=== PATIENT | female | born 1985 | race Two or more races ===

== ENCOUNTER 2020-01-04 20:32 | Emergency (ER) | payer OTHER, MEDICAID ==
[2020-01-04 21:30] LABS: ABSOLUTE BASOPHILS # (AUTO) 0.1 10^3/uL (0.0-0.2); ABSOLUTE EOSINOPHILS # (AUTO) 0.1 10^3/uL (0.0-0.6); ABSOLUTE LYMPHOCYTES (AUTO) 2.4 10^3/uL (0.5-4.7); ABSOLUTE MONOCYTES (AUTO) 0.5 10^3/uL (0.1-1.4); ABSOLUTE NEUT (AUTO) 4.9 10^3/uL (1.7-8.2); BASOPHILS % (AUTO) 0.7 % (0-2); EOSINOPHILS % (AUTO) 0.7 % (0-6); HEMATOCRIT 38.9 % (36.0-47.0); HEMOGLOBIN 13.2 g/dL (12.0-15.5); LYMPHOCYTES % (AUTO) 30.4 % (13-45); MEAN CORPUSCULAR HEMOGLOBIN 28.8 pg (27.0-33.4); MEAN CORPUSCULAR HGB CONC 33.9 g/dL (32.0-36.0); MEAN CORPUSCULAR VOLUME 85 fl (80-97); MONOCYTES % (AUTO) 6.1 % (3-13); PLATELET COUNT 357 10^3/uL (150-450); RED BLOOD COUNT 4.58 10^6/uL (3.72-5.28); RED CELL DISTRIBUTION WIDTH 13.5 % (11.5-14.0); SEGMENTED NEUTROPHILS % (AUTO) 62.1 % (42-78); TOTAL CELLS COUNTED % (AUTO) 100 %; WHITE BLOOD COUNT 7.9 10^3/uL (4.0-10.5)
[2020-01-04 21:35] LABS: APPEARANCE,URINE CLEAR; BILIRUBIN,URINE NEGATIVE (NEGATIVE); COLOR,URINE YELLOW; GLUCOSE, URINE 50 mg/dL (NEGATIVE); KETONES,URINE NEGATIVE (NEGATIVE); LEUKOCYTE ESTERASE,URINE NEGATIVE (NEGATIVE); NITRITE,URINE NEGATIVE (NEGATIVE); PROTEIN,URINE NEGATIVE (NEGATIVE); UROBILINOGEN,URINE NEGATIVE mg/dL (<2.0)
[2020-01-04 21:44] LABS: ALBUMIN 4.1 g/dL (3.5-5.0); ALKALINE PHOSPHATASE 68 U/L (38-126); ANION GAP 9 (5-19); ASPARTATE AMINO TRANSFERASE 18 U/L (14-36); BILIRUBIN,DIRECT 0.2 mg/dL (0.0-0.4); BILIRUBIN,TOTAL 0.3 mg/dL (0.2-1.3); BLOOD UREA NITROGEN 13 mg/dL (7-20); CALCIUM 10.3 mg/dL (8.4-10.2); CARBON DIOXIDE 24 mmol/L (22-30); CHLORIDE 105 mmol/L (98-107); GLUCOSE 159 mg/dL (75-110); POTASSIUM 4.4 mmol/L (3.6-5.0); TOTAL PROTEIN 7.4 g/dL (6.3-8.2)
--- NOTE | 2020-01-04 21:52 | ER Document Report ---
ED GI/ - General Chief Complaint: OB Problem (<20wks) Stated Complaint: VAGINAL BLEEDING Time Seen by Provider: 01/04/20 21:01 Mode of Arrival: Ambulatory Information source: Patient Notes: 34-year-old woman presents emergency department with vaginal bleeding. She is a 4, para 3 Ab0 approximate 9-week intrauterine seen by her TIME CLOCK MECHANIC and ultrasound 2 weeks ago, intrauterine too early to identify heartbeat at that time. She states she was at work tonight when she began to note vaginal bleeding, similar to premenstrual bleeding according to the patient dark and no associated cramping or pain. She also admits to some dizziness. States that she does not know her blood type. - Related Data Allergies/Adverse Reactions: No Known Allergies Allergy (Unverified 01/04/20 20:48) Home Medications: vitamins. novalog R sliding scale. tresiba inj qpm Past Medical History - Social History Smoking Status: Never Smoker Family History: Reviewed & Not Pertinent Patient has suicidal ideation: No Patient has homicidal ideation: No Review of Systems - Review of Systems Notes: Constitutional: Negative for fever. HENT: Negative for sore throat. Eyes: Negative for visual changes. Cardiovascular: Negative for chest pain. Respiratory: Negative for shortness of breath. Gastrointestinal: Negative for abdominal pain, vomiting or diarrhea. Genitourinary: + Vaginal bleeding Musculoskeletal: Negative for back pain. Skin: Negative for rash. Neurological: Negative for headaches, weakness or numbness. 10 point ROS negative except as marked above and in HPI. Physical Exam - Vital signs Vitals: Temp Pulse Resp BP Pulse Ox 98.4 F 86 16 131/74 H 97 01/04/20 20:36 01/04/20 20:36 01/04/20 20:36 01/04/20 20:36 01/04/20 20:36 - Notes Notes: PHYSICAL EXAMINATION: Physical Exam: General: Well-nourished well-developed 34-year-old woman in no acute distress HEENT: NC/AT, pupils equal round and reactive to light, MM moist,nares clear, oropharynx clear, airway patent Neck: supple, no adenopathy, no masses. Good range of motion Lungs: clear, no wheezing, no rales no rhonchi CVS: Regular rate and rhythm no murmur gallop or rub Abdomen: Soft, active, nontender, no masses, no hepatosplenomegaly Ext: No edema, clubbing or cyanosis. Neuro: Alert and responsive, moving all 4 extremities on command, cranial nerves intact, no focal findings Skin: Intact no open lesions, no rash PSYCH: Normal mood, normal affect. Course - Re-evaluation Re-evalutation: 01/04/20 23:54 Patient is stable, no pain, ultrasound revealed saclike structure within the uterus, 4.4 x 2.1 cm questionable gestational sac, no discrete yolk sac or pole to be identified. The quantitative hCG was 2575.60 and urinalysis negative. I discussed with the patient the need for follow-up, she notes she has an appointment with her [employer] CLOCK MECHANIC tomorrow. I have asked her to keep that appointment and to let them know that she has been seen in the emergency department tonight. She is in agreement with that plan and is being discharged. - Vital Signs Vital signs: Temp Pulse Resp BP Pulse Ox 98.5 F 90 20 124/81 99 01/05/20 00:27 01/05/20 00:27 01/05/20 00:27 01/05/20 00:27 01/05/20 00:27 - Laboratory Result Diagrams: 01/04/20 21:00 01/04/20 21:00 Laboratory results interpreted by me: 01/04/20 01/04/20 21:00 21:00 Glucose 159 H Calcium 10.3 H Beta HCG, Quant 2575.60 H Urine Glucose (UA) 50 H Urine Blood LARGE H Discharge - Discharge Clinical Impression: First-trimester bleeding Condition: Good Disposition: HOME, SELF-CARE Additional Instructions: You were diagnosed with first trimester vaginal bleeding tonight in the emergency department. The ultrasound reveals a saclike structure within the uterus. Quantitative hCG was 2,575. Please follow-up with the appointment that you have tomorrow with [employer] CL[employer] MECHANIC. If you began having heavier bleeding or cramping pain you may return to the emergency department for recheck if needed.
--- NOTE | 2020-01-04 23:11 | RADIOLOGY REPORT (SQ) ---
EXAM DESCRIPTION: US TRANSVAGINAL COMPLETED DATE/TME: 01/04/2020 10:38 PM CLINICAL HISTORY: with bleeding, approximately 9 weeks COMPARISON: None. FINDINGS: Transvaginal images of the pelvis were submitted. The uterus measured 11.8 x 2.6 x 5.9 cm. There is a cystic structure within the uterus measuring approximately 4.4 x 2.1 cm which could represent a gestational sac. There is no discrete yolk sac or pole visualized. Examination was limited due to patient's body habitus and superimposed bowel gas. There is a subcentimeter nabothian cyst. Ovaries were not visualized. There is no adnexal mass. IMPRESSION: Saclike structure within the uterus without discrete pole or yolk sac. This could represent a blighted ovum/spontaneous in progress. Other etiologies are not excluded. Correlation with serial beta-hCG levels recommended and follow-up ultrasound as indicated.
[2020-01-05 00:28] VITALS: BP 124/81
== END 2020-01-05 00:30 | disposition home or self-care (01) ==
LOC: ER 20:32
DX: O26.891 Other specified pregnancy related conditions, first trimester (principal); O20.9 Hemorrhage in early pregnancy, unspecified; R42 Dizziness and giddiness; Z79.4 Long term (current) use of insulin; Z79.899 Other long term (current) drug therapy; Z3A.00 Weeks of gestation of pregnancy not specified
CPT/HCPCS: 36415; 76817; 80053; 81001; 83690; 84702; 85025; 86900; 86901; 99284

== ENCOUNTER 2020-02-01 09:34 | Day surgery (SDC) | payer OTHER, MEDICAID ==
[2020-02-01 10:09] LABS: ABSOLUTE BASOPHILS # (AUTO) 0.1 10^3/uL (0.0-0.2); ABSOLUTE EOSINOPHILS # (AUTO) 0.1 10^3/uL (0.0-0.6); ABSOLUTE LYMPHOCYTES (AUTO) 2.8 10^3/uL (0.5-4.7); ABSOLUTE MONOCYTES (AUTO) 0.5 10^3/uL (0.1-1.4); ABSOLUTE NEUT (AUTO) 5.1 10^3/uL (1.7-8.2); BASOPHILS % (AUTO) 0.7 % (0-2); HEMATOCRIT 38.3 % (36.0-47.0); HEMOGLOBIN 13.1 g/dL (12.0-15.5); LYMPHOCYTES % (AUTO) 32.4 % (13-45); MEAN CORPUSCULAR HEMOGLOBIN 28.8 pg (27.0-33.4); MEAN CORPUSCULAR HGB CONC 34.1 g/dL (32.0-36.0); MEAN CORPUSCULAR VOLUME 84 fl (80-97); MONOCYTES % (AUTO) 5.7 % (3-13); PLATELET COUNT 283 10^3/uL (150-450); RED BLOOD COUNT 4.55 10^6/uL (3.72-5.28); RED CELL DISTRIBUTION WIDTH 13.2 % (11.5-14.0); SEGMENTED NEUTROPHILS % (AUTO) 60.2 % (42-78); TOTAL CELLS COUNTED % (AUTO) 100 %; WHITE BLOOD COUNT 8.6 10^3/uL (4.0-10.5)
[2020-02-01 10:26] LABS: APPEARANCE,URINE SLIGHTLY-CLOUDY; BILIRUBIN,URINE NEGATIVE (NEGATIVE); COLOR,URINE YELLOW; GLUCOSE, URINE >=500 mg/dL (NEGATIVE); KETONES,URINE TRACE mg/dL (NEGATIVE); LEUKOCYTE ESTERASE,URINE NEGATIVE (NEGATIVE); NITRITE,URINE NEGATIVE (NEGATIVE); PROTEIN,URINE 30 mg/dL (NEGATIVE); URINE SPECIFIC GRAVITY 1.023; UROBILINOGEN,URINE NEGATIVE mg/dL (<2.0)
[2020-02-01] MEDS ORDERED: MIDAZOLAM 2 MG/2 ML INJ ONE (13:17)
[2020-02-01] MEDS ORDERED: FENTANYL CITRATE INJ/PF 100 MCG/2 ML AMPUL ONE (13:17)
[2020-02-01] MEDS ORDERED: PROPOFOL INJ 200 MG/20 ML VIAL IV ONE (13:17)
[2020-02-01] MEDS ORDERED: LIDOCAINE 1% INJ-PF (10 MG/ML) 30 ML SDV ONE (13:18)
[2020-02-01] MEDS ORDERED: LIDOCAINE 1%/EPINEPHRINE INJ 20 ML VIAL ONE (13:19)
[2020-02-01] MEDS ORDERED: FENTANYL CITRATE INJ/PF 100 MCG/2 ML AMPUL IV PRN ×3 (13:37)
[2020-02-01] MEDS ORDERED: DIPHENHYDRAMINE HCL 50 MG/ML VIAL IV PRN (13:37)
[2020-02-01] MEDS ORDERED: MORPHINE SULFATE 10 MG/ML INJ IV PRN (13:37)
[2020-02-01] MEDS ORDERED: MEPERIDINE HCL/PF INJ 25 MG/1 ML DISP.SYRIN IV PRN (13:37)
[2020-02-01] MEDS ORDERED: PROMETHAZINE HCL INJ 25 MG/1 ML VIAL IV PRN ×2 (13:37)
--- NOTE | 2020-02-01 13:59 | Discharge Summary ---
Discharge Summary (SDC) - Discharge Final Diagnosis: Missed Date of Surgery: 02/01/20 Discharge Date: 02/01/20 Condition: Stable Treatment or Instructions: NO intercourse or anything in the vagina for 6 weeks Hydrate Prescriptions: Doxycycline Hyclate 100 mg PO BID 5 Days #10 tablet. Ibuprofen [Ibu] 800 mg PO Q8 10 Days #30 tablet Referrals: BRITTANEY ZAFAR PA-C [Primary Care Provider] - Respiratory Treatments at Home: Deep Breathing/Coughing Discharge Activity: Activity As Tolerated Home Care Assistance: None Needed Report the Following to Your Physician Immediately: Shortness of Breath, Nausea, Vomiting, Fever over 101 Degrees, Unusual Bleeding, Drainage-Foul Smelling, Large Clots
--- NOTE | 2020-02-01 14:03 | Operative Report ---
Operative Report DATE OF SURGERY: 02/01/20 PREOPERATIVE DIAGNOSIS: Missed in first trimester. Type II diabetes. Obesity POSTOPERATIVE DIAGNOSIS: same as above OPERATION: Suction Dilation and currettage SURGEON: EMIGDIO RIVERA ANESTHESIA: LMAC TISSUE REMOVED OR ALTERED: Prodiucts of conception COMPLICATIONS: None ESTIMATED BLOOD LOSS: 100cc INTRAOPERATIVE FINDINGS: Uterus sounded to 10 cm. Some dark blood at os which appeared dilated to less than 1 cm . Dilated to 1 cm easily and products of conception suctioned from endometrial cavity. Currettage done and suction repeated until gritty texture of endometrium noted. PROCEDURE: IV fluids: Crystalloid IV fluids per anesthesia record Disposition: To recovery room in stable condition Description of the procedure: The patient was taken to the operating room where monitored anesthesia was administered and found to be adequate. She was then placed in the dorsol lithotomy position and prepped and draped in the usual sterile fashion. A timeout was taken. A weighted speculum was placed in the vagina and a Rosales retractor was used to bring the cervix into good view. A single-tooth tenaculum was used to grasp the anterior lip of the cervix and the cervix was serially dilated. The uterus sounded to approximately 10 cm and the cervix was serially dilated to approximately 10 mm. The #8 suction curette was inserted and using suction, the products of conception were removed. The suction curette was removed and a regular curette was advanced to the uterine fundus. Gentle curettage was done in a circumferential manner until a gritty texture was noted. The curette was removed and suction curette re-inserted to the fundus. Suction curettage done once more. The tissue obtained will be sent to the lab as products of conception. Part of sample sent fresh for Chromosomes. The procedure was then terminated all instrument to remove the patient's vagina. The patient tolerated the procedure well all instrument sponge and needle counts were correct x2 for the procedure she will proceed to recovery room in stable condition
[2020-02-01 15:45] VITALS: BP 121/76
== END 2020-02-01 15:30 | disposition home or self-care (01) ==
LOC: OROUT 09:34
PROVIDERS: ATTEND Obstetrics & Gynecology
DX: O02.1 Missed abortion (principal); E11.9 Type 2 diabetes mellitus without complications; E66.9 Obesity, unspecified; Z68.41 Body mass index [BMI] 40.0-44.9, adult; Z79.4 Long term (current) use of insulin
CPT/HCPCS: 36415; 82962; 85025; 81001; 88305 ×2; 59820; J2250; J3010; J2704; 940; J3490

== ENCOUNTER 2020-05-27 16:13 | Emergency (ER) | payer OTHER, MEDICAID ==
[2020-05-27] MEDS ORDERED: NORMAL SALINE 1000 ML 1,000 ML IV ONE (16:33)
--- NOTE | 2020-05-27 16:37 | ER Document Report ---
ED Medical Screen (RME) - General Chief Complaint: High Blood Sugar Stated Complaint: BLOOD SUGAR ISSUES Time Seen by Provider: 05/27/20 16:32 Primary Care Provider: BRITTANEY ZAFAR PA-C [Primary Care Provider] - Follow up as needed Mode of Arrival: Medic Information source: Patient Notes: 35-year-old female presented to ED for lightheadedness and tiredness at work. She states this started about 3:40 PM. She states she walked over to the fire [facility] because it was right next door to where she was working they did Accu-Chek and was 460. She states they gave her a little bag of fluid and it came up to 475. She states she is a type II diabetic. She states she normally runs in the 200s. She states she does have a history of manic depression and anxiety. She does not smoke she drinks occasionally does not use any drugs and her last menstrual period was April 27. She states she might be she is not sure. She is alert oriented respirations regular nonlabored speaking in full sentences. She states she did just recently start using the insulin from [employer] because her sugars were so high all the time. I have greeted and performed a rapid initial assessment of this patient. A comprehensive ED assessment and evaluation of the patient, analysis of test results and completion of medical decision making process will be conducted by an additional ED providers. TRAVEL OUTSIDE OF THE [place] IN LAST 30 DAYS: No - Related Data Allergies/Adverse Reactions: No Known Allergies Allergy (Unverified 02/02/20 12:18) Past Medical History - Past Medical History Cardiac Medical History: Reports: Hx Hypercholesterolemia, Hx Hypertension Denies: Hx Coronary Artery Disease, Hx Heart Attack Pulmonary Medical History: Denies: Hx Asthma, Hx Bronchitis, Hx COPD, Hx Pneumonia Neurological Medical History: Reports: Hx Migraine. Denies: Hx Cerebrovascular Accident, Hx Seizures Endocrine Medical History: Reports: Hx Diabetes Mellitus Type 2 GI Medical History: Reports: Hx Gastroesophageal Reflux Disease Musculoskeltal Medical History: Denies Hx Arthritis Psychiatric Medical History: Reports: Hx Anxiety, Hx Depression Past Surgical History: Reports: Hx Section, Hx Oral Surgery - Immunizations Immunizations up to date: Yes Hx Diphtheria, Pertussis, Tetanus Vaccination: Yes - unknown Physical Exam - Vital signs Vitals: Temp Pulse Resp BP Pulse Ox 98.1 F 96 20 118/67 99 05/27/20 16:21 08/24/20 16:21 05/27/20 16:21 05/27/20 16:21 05/27/20 16:21 Course - Vital Signs Vital signs: Temp Pulse Resp BP Pulse Ox 98.1 F 96 20 118/67 99 05/27/20 16:21 05/27/20 16:21 05/27/20 16:21 05/27/20 16:21 05/27/20 16:21 Doctor's Discharge - Discharge Referrals: BRITTANEY ZAFAR PA-C [Primary Care Provider] - Follow up as needed
[2020-05-27 17:23] LABS: ABSOLUTE LYMPHOCYTES (AUTO) 1.8 10^3/uL (0.5-4.7); ABSOLUTE MONOCYTES (AUTO) 0.5 10^3/uL (0.1-1.4); ABSOLUTE NEUT (AUTO) 6.1 10^3/uL (1.7-8.2); BASOPHILS % (AUTO) 0.4 % (0-2); EOSINOPHILS % (AUTO) 0.3 % (0-6); HEMATOCRIT 40.6 % (36.0-47.0); HEMOGLOBIN 13.2 g/dL (12.0-15.5); LYMPHOCYTES % (AUTO) 21.7 % (13-45); MEAN CORPUSCULAR HEMOGLOBIN 27.5 pg (27.0-33.4); MEAN CORPUSCULAR HGB CONC 32.4 g/dL (32.0-36.0); MEAN CORPUSCULAR VOLUME 85 fl (80-97); MONOCYTES % (AUTO) 5.5 % (3-13); PLATELET COUNT 287 10^3/uL (150-450); RED BLOOD COUNT 4.79 10^6/uL (3.72-5.28); RED CELL DISTRIBUTION WIDTH 14.2 % (11.5-14.0); SEGMENTED NEUTROPHILS % (AUTO) 72.1 % (42-78); TOTAL CELLS COUNTED % (AUTO) 100 %; WHITE BLOOD COUNT 8.4 10^3/uL (4.0-10.5)
[2020-05-27 17:36] LABS: ALBUMIN 3.9 g/dL (3.5-5.0); ALKALINE PHOSPHATASE 79 U/L (38-126); ANION GAP 8 (5-19); ASPARTATE AMINO TRANSFERASE 19 U/L (14-36); BILIRUBIN,DIRECT 0.1 mg/dL (0.0-0.4); BILIRUBIN,TOTAL 0.5 mg/dL (0.2-1.3); BLOOD UREA NITROGEN 13 mg/dL (7-20); CALCIUM 9.3 mg/dL (8.4-10.2); CARBON DIOXIDE 25 mmol/L (22-30); CHLORIDE 102 mmol/L (98-107); POTASSIUM 4.4 mmol/L (3.6-5.0)
[2020-05-27 18:00] LABS: GLUCOSE 442 mg/dL (75-110)
--- NOTE | 2020-05-27 19:41 | EKG REPORT ---
SEVERITY:- BORDERLINE ECG - SINUS RHYTHM BORDERLINE T ABNORMALITIES, DIFFUSE LEADS : Confirmed by: Tamera Cooper MD 27-May-2020 19:40:53
[2020-05-27 20:20] LABS: VENOUS BLOOD BASE EXCESS -1.7 mmol/L; VENOUS BLOOD HCO3 24.8 mmol/L (20-32); VENOUS BLOOD PCO2 48.9 mmHg (35-63); VENOUS BLOOD PH 7.32 (7.30-7.42)
--- NOTE | 2020-05-27 20:23 | ER Document Report ---
ED General - General Chief Complaint: High Blood Sugar Stated Complaint: BLOOD SUGAR ISSUES Time Seen by Provider: 05/27/20 16:32 Primary Care Provider: BRITTANEY ZAFAR PA-C [Primary Care Provider] - Follow up as needed Mode of Arrival: Medic TRAVEL OUTSIDE OF THE [place] IN LAST 30 DAYS: No - HPI Notes: 35-year-old female presents with high blood sugar. Patient states she ate "a crap ton of carbs" today. She states that she had a donut, pizza, rice, noodles, lumpia, diet Coke and water. She states after consuming this she began to feel lightheaded and exhausted. She then became hot and sweating, had some nausea and lightheadedness increased. She states that she felt that her blood sugar was high, she went to the [employer] house which was next door to her work, blood sugar was 460 and actually increased to 475 after receiving fluids. Patient states that she does not really check her blood sugar. She has begun insulin, states that this is not prescribed to her by her physician, she is able to purchase this at [facility] without a prescription. She states that she does sliding scale, a relative is a nurse who helps her with the dosing. However she states she does not take it regularly throughout the day. She previously was on metformin, however discontinued this due to diarrhea. She has not yet seen her PCP to discuss the insulin use. She currently states she is feeling better. - Related Data Allergies/Adverse Reactions: No Known Allergies Allergy (Unverified 02/02/20 12:18) Past Medical History - General Information source: Patient - Social History Smoking Status: Never Smoker Family History: Reviewed & Not Pertinent - Past Medical History Cardiac Medical History: Reports: Hx Hypercholesterolemia, Hx Hypertension Denies: Hx Coronary Artery Disease, Hx Heart Attack Pulmonary Medical History: Denies: Hx Asthma, Hx Bronchitis, Hx COPD, Hx Pneumonia Neurological Medical History: Reports: Hx Migraine. Denies: Hx Cerebrovascular Accident, Hx Seizures Endocrine Medical History: Reports: Hx Diabetes Mellitus Type 2 GI Medical History: Reports: Hx Gastroesophageal Reflux Disease Musculoskeletal Medical History: Denies Hx Arthritis Psychiatric Medical History: Reports: Hx Anxiety, Hx Depression Past Surgical History: Reports: Hx Section - x2, Hx Oral Surgery - Immunizations Immunizations up to date: Yes Hx Diphtheria, Pertussis, Tetanus Vaccination: Yes - unknown Review of Systems - Review of Systems Constitutional: denies: Chills, Fever EENT: Other - Dry mouth Cardiovascular: denies: Chest pain Respiratory: denies: Short of breath Gastrointestinal: denies: Abdominal pain Genitourinary: denies: Dysuria Female Genitourinary: No symptoms reported Musculoskeletal: No symptoms reported Skin: No symptoms reported Hematologic/Lymphatic: No symptoms reported Neurological/Psychological: denies: Headaches Physical Exam - Vital signs Vitals: Temp Pulse Resp BP Pulse Ox 98.1 F 96 20 118/67 99 05/27/20 16:21 05/27/20 16:21 05/27/20 16:21 05/27/20 16:21 05/27/20 16:21 - General General appearance: Appears well In distress: None - HEENT Head: Normocephalic, Atraumatic Pupils: PERRL - Respiratory Breath sounds: Normal - Cardiovascular Rhythm: Regular Heart sounds: Normal auscultation - Abdominal Inspection: Obese Tenderness: Nontender - Extremities General lower extremity: No: Edema - Neurological Neuro grossly intact: Yes Cognition: Normal Orientation: AAOx4 - Psychological Associated symptoms: Normal affect - Skin Skin Temperature: Warm Course - Re-evaluation Re-evalutation: 05/27/20 20:50 34-year-old female type II diabetic here with hyperglycemia associated with high carb intake today. On exam she is well-appearing, vitals are stable. No gross abnormalities on physical exam. Patient has stated that she is no longer taking oral diabetic medication, rather she is buying insulin and dosing it herself. We had a long discussion about proper diabetic management and need to follow-up with her primary care doctor as soon as possible to get on a more appropriate regiment. She received 1 L of normal saline via triage process. Have ordered additional liter of LR along with subcutaneous insulin. Labs reviewed, she has no acidosis or anion gap. Creatinine and electrolytes are within normal limits. She is not in DKA based on this laboratory assessment. 05/27/20 22:59 Glucose has down trended following fluids and insulin. Patient encouraged to follow-up with PCP. Return precautions given, stable at time of discharge. - Vital Signs Vital signs: Temp Pulse Resp BP Pulse Ox 98.1 F 96 20 118/67 99 05/27/20 16:21 05/27/20 16:21 05/27/20 16:21 05/27/20 16:21 05/27/20 20:00 - Laboratory Result Diagrams: 05/27/20 16:50 05/27/20 16:50 Laboratory results interpreted by me: 05/27/20 05/27/20 05/27/20 16:41 16:50 16:50 RDW 14.2 H Sodium 134.7 L Glucose 442 H* POC Glucose 407 H* Urine Glucose (UA) 05/27/20 05/27/20 05/27/20 16:50 19:37 22:39 RDW Sodium Glucose POC Glucose 341 H 225 H Urine Glucose (UA) >=500 H Discharge - Discharge Clinical Impression: Hyperglycemia due to type 2 diabetes mellitus Qualifiers: Diabetes mellitus usp insulin use: without usp use Qualified Code(s): E11.65 - Type 2 diabetes mellitus with hyperglycemia Condition: Stable Disposition: HOME, SELF-CARE Additional Instructions: As discussed, please try to see your primary care doctor as soon as possible. There are multiple medications that he can discuss with you and find an appropriate regimen. Please be sure to drink plenty of water and avoid high sugar containing foods/drinks. Return to the emergency department for any concerning worsening symptoms. Referrals: BRITTANEY ZAFAR PA-C [Primary Care Provider] - Follow up as needed
[2020-05-27] MEDS ORDERED: RINGERS SOLUTION,LACTATED 1,000 ML IV ONE (20:39)
[2020-05-27] MEDS ORDERED: INSULIN REG, HUMAN 100 UNIT/ML 3 ML VIAL (PYX) SUBCUT ONE (20:40)
[2020-05-27 21:22] LABS: APPEARANCE,URINE CLEAR; BILIRUBIN,URINE NEGATIVE (NEGATIVE); COLOR,URINE STRAW; GLUCOSE, URINE >=500 mg/dL (NEGATIVE); KETONES,URINE NEGATIVE (NEGATIVE); LEUKOCYTE ESTERASE,URINE NEGATIVE (NEGATIVE); NITRITE,URINE NEGATIVE (NEGATIVE); PROTEIN,URINE NEGATIVE (NEGATIVE); URINE SPECIFIC GRAVITY 1.033; UROBILINOGEN,URINE NEGATIVE mg/dL (<2.0)
[2020-05-27 23:04] VITALS: BP 120/75
== END 2020-05-27 23:11 | disposition home or self-care (01) ==
LOC: ER 16:13
DX: E11.65 Type 2 diabetes mellitus with hyperglycemia (principal); R42 Dizziness and giddiness; R61 Generalized hyperhidrosis; R11.0 Nausea; I10 Essential (primary) hypertension; E11.9 Type 2 diabetes mellitus without complications
CPT/HCPCS: 93005; 99284; 96360; 96361; 36415; 82962; 84703; 85025; 80053; 81001; 82803; 93010; J1815; J7030; J7120

== ENCOUNTER 2020-10-19 21:39 | Inpatient (IN) | payer OTHER, MEDICAID ==
[2020-10-19] MEDS ORDERED: VANCOMYCIN HCL INJ 1000 MG VIAL IV ONE ×2 (22:03→22:26)
[2020-10-19] MEDS ORDERED: NORMAL SALINE 1000 ML 2,950 ML IV ONE (22:03)
[2020-10-19] MEDS ORDERED: ACETAMINOPHEN 325 MG TABLET PO ONE (22:03)
[2020-10-19] MEDS ORDERED: CEFTRIAXONE 1 GM/D5W RTU 1 GM/50 ML RTUPB IV ONE (22:03)
[2020-10-19] MEDS ORDERED: KETOROLAC TROMETHAMINE INJ/PF 30 MG/1 ML SDV IV ONE (22:07)
--- NOTE | 2020-10-19 22:09 | ER Document Report ---
ED Medical Screen (RME) - General Chief Complaint: Flu Symptoms Stated Complaint: FEVER OF 102, VOMITING, NAUSEA, ABSCESS ON BREAST Time Seen by Provider: 10/19/20 21:59 Primary Care Provider: BRITTANEY ZAFAR PA-C [Primary Care Provider] - Follow up as needed Mode of Arrival: Ambulatory Information source: Patient TRAVEL OUTSIDE OF THE [place] IN LAST 30 DAYS: No - HPI Patient complains to provider of: Fever Notes: 10/19/20 22:07 Patient here with complaints of fever, chills, body aches and vomiting that started earlier today. Patient is a diabetic, states her blood sugar was 300 at home. Patient does report that she has had a left breast abscess that she been dealing with for several weeks. She is never had it drained. Exam: Nontoxic, patient appears to be uncomfortable. Tachycardia. Lungs clear and equal throughout. Large tender abscess to the left breast at approximately 2:00 near the areola. Tenderness to palpation. An initial examination was made on the patient as part of the triage process, and it was determined a more comprehensive evaluation was necessary. Initial orders were placed and patient was transferred to another provider in the ED who assumed care and finished evaluation and plan. Based on the patient's vital signs of tachycardia and fever with large breast abscess, sepsis order set was initiated including IV fluids and antibiotics. - Related Data Allergies/Adverse Reactions: No Known Allergies Allergy (Unverified 02/02/20 12:18) Home Medications: Insulin. novolog N Past Medical History - Social History Chew tobacco use (# tins/day): No Frequency of alcohol use: None Drug Abuse: None - Past Medical History Cardiac Medical History: Reports: Hx Hypercholesterolemia, Hx Hypertension Denies: Hx Coronary Artery Disease, Hx Heart Attack Pulmonary Medical History: Denies: Hx Asthma, Hx Bronchitis, Hx COPD, Hx Pneumonia Neurological Medical History: Reports: Hx Migraine. Denies: Hx Cerebrovascular Accident, Hx Seizures Endocrine Medical History: Reports: Hx Diabetes Mellitus Type 2 GI Medical History: Reports: Hx Gastroesophageal Reflux Disease Musculoskeltal Medical History: Denies Hx Arthritis Psychiatric Medical History: Reports: Hx Anxiety, Hx Depression Past Surgical History: Reports: Hx Section - x2, Hx Oral Surgery - Immunizations Immunizations up to date: Yes Hx Diphtheria, Pertussis, Tetanus Vaccination: Yes - unknown Physical Exam - Vital signs Vitals: Temp Pulse Resp BP Pulse Ox 101.2 F H 147 H 18 119/67 96 10/19/20 21:46 10/19/20 21:46 10/19/20 21:46 10/19/20 21:46 10/19/20 21:46 Course - Vital Signs Vital signs: Temp Pulse Resp BP Pulse Ox 101.2 F H 147 H 18 119/67 96 10/19/20 21:59 10/19/20 21:46 10/19/20 21:46 10/19/20 21:46 10/19/20 21:46 Doctor's Discharge - Discharge Referrals: BRITTANEY ZAFAR PA-C [Primary Care Provider] - Follow up as needed
[2020-10-19] MEDS ORDERED: NORMAL SALINE 1000 ML 1,000 ML IV ONE ×2 (22:25→22:26)
[2020-10-19] MEDS ORDERED: MORPHINE SULFATE 10 MG/ML INJ IV ONE (22:26)
[2020-10-19] MEDS ORDERED: ONDANSETRON HCL INJ/PF 4 MG/2 ML SDV IV ONE (22:27)
--- NOTE | 2020-10-19 22:43 | RADIOLOGY REPORT (SQ) ---
EXAM: CHEST SINGLE VIEW CLINICAL INDICATION: 35-year-old female with fever. TECHNIQUE: Single view, AP portable chest was obtained. COMPARISON: None. FINDINGS: Unremarkable cardiac and mediastinal silhouette. Heart size is normal. Lungs are clear without focal opacity, pneumothorax or pleural effusions. The visualized bones are within normal limits. IMPRESSION: No acute cardiopulmonary abnormalities.
--- NOTE | 2020-10-19 23:02 | ER Document Report ---
ED General - General Chief Complaint: Flu Symptoms Stated Complaint: FEVER OF 102, VOMITING, NAUSEA, ABSCESS ON BREAST Time Seen by Provider: 10/19/20 21:59 Mode of Arrival: Ambulatory Notes: Patient is a 35-year-old female with a history of insulin-dependent type 2 diabetes and obesity that comes emergency department for chief complaint of fever, chills, nausea, vomiting, and pain to the left breast. She states she has had worsening pain and swelling to the left breast for about a week, she denies drainage to the area. She denies history of abscesses or IV drug abuse. She states the area has been tender intermittently for weeks now but has worsened over the past several days. She states she has insulin but only takes it "as needed", has not taken it recently. She is to be on oral medications as well but this was stopped. She denies , she denies any medical history otherwise. She denies cough or upper respiratory symptoms, denies COVID-19 exposure. TRAVEL OUTSIDE OF THE [place] IN LAST 30 DAYS: No - Related Data Allergies/Adverse Reactions: No Known Allergies Allergy (Unverified 02/02/20 12:18) Home Medications: Insulin. novolog N Past Medical History - General Information source: Patient - Social History Smoking Status: Never Smoker Chew tobacco use (# tins/day): No Frequency of alcohol use: None Drug Abuse: None Lives with: Family Family History: Reviewed & Not Pertinent Patient has homicidal ideation: No - Past Medical History Cardiac Medical History: Reports: Hx Hypercholesterolemia, Hx Hypertension Denies: Hx Coronary Artery Disease, Hx Heart Attack Pulmonary Medical History: Denies: Hx Asthma, Hx Bronchitis, Hx COPD, Hx Pneumonia Neurological Medical History: Reports: Hx Migraine. Denies: Hx Cerebrovascular Accident, Hx Seizures Endocrine Medical History: Reports: Hx Diabetes Mellitus Type 2 GI Medical History: Reports: Hx Gastroesophageal Reflux Disease Musculoskeletal Medical History: Denies Hx Arthritis Psychiatric Medical History: Reports: Hx Anxiety, Hx Depression Past Surgical History: Reports: Hx Section - x2, Hx Oral Surgery - Immunizations Immunizations up to date: Yes Hx Diphtheria, Pertussis, Tetanus Vaccination: Yes - unknown Review of Systems - Review of Systems Constitutional: See HPI EENT: No symptoms reported Cardiovascular: No symptoms reported Respiratory: No symptoms reported Gastrointestinal: See HPI Genitourinary: No symptoms reported Female Genitourinary: No symptoms reported Musculoskeletal: No symptoms reported Skin: See HPI Hematologic/Lymphatic: No symptoms reported Neurological/Psychological: No symptoms reported Physical Exam - Vital signs Vitals: Temp Pulse Resp BP Pulse Ox 101.2 F H 147 H 18 119/67 96 10/19/20 21:46 10/19/20 21:46 10/19/20 21:46 10/19/20 21:46 10/19/20 21:46 - Notes Notes: GENERAL: Alert and interactive, moderately ill-appearing but still energetic HEAD: Normocephalic, atraumatic. EYES: Pupils equal, round, and reactive to light. Extraocular movements intact. ENT: Oral mucosa dry, tongue midline. Oropharynx unremarkable. Airway patent. NECK: Full range of motion. Supple. Trachea midline. No lymphadenopathy. LUNGS: Clear to auscultation bilaterally, no wheezes, rales, or rhonchi. No respiratory distress. Non-tender chest wall. HEART: Tachycardia, normal rhythm, no murmur ABDOMEN: Soft, non-tender. Non-distended. EXTREMITIES: Moves all 4 extremities spontaneously. No edema, normal radial and dorsalis pedis pulses bilaterally. No cyanosis. BACK: no cervical, thoracic, lumbar midline tenderness. No saddle anesthesia, normal distal neurovascular exam. Moves all extremities in full range of motion. NEUROLOGICAL: Alert and oriented x3. Normal speech. Cranial nerves II through XII grossly intact. Strength 5/5 in all extremities. PSYCH: Normal affect, normal mood. SKIN: Flushed and hot. There is a large area of induration over the left breast at approximately the 2 o'clock position superiorly. There is no draining head, no wound, no involvement of the nipple. Unremarkable skin exam otherwise. Exam performed with Vale HERNANDEZ at bedside. Course - Re-evaluation Re-evalutation: Patient with an obvious approximately tennis ball sized indurated area consistent with an abscess over the left breast. Patient is febrile, tachyc ardic, although she is nontoxic in appearance. She is not hypotensive. Patient given IV fluid resuscitation per her weight per sepsis protocol, started on broad-spectrum antibiotics, cultures drawn. CBC does not show leukocytosis but does show concerning bandemia with 14% left shift. Chemistry nonspecific with hyperglycemia but no acidosis. Urine is still pending. Chest x-ray unremarkable. Lactic acid is elevated at 3. On repeat evaluation heart rate has improved down to the 120s, blood pressure is still normal. Patient remains well-appearing on reevaluation. Discussed with patient, will discuss with close surgeon and hospitalist for admission for sepsis without shock with suspected source of the abscess. 10/20/20 00:[address] Calderon, general surgery, he recommends hospitalist admission and surgical consult, will speak with the hospitalist. 10/20/20 Dr. Calderon did evaluate the patient, still recommends admission to the hospitalist, I did speak with Dr. Ruelas, he states he will evaluate the patient. 10/20/20 Dr. Ruelas accepted the patient to the medical floor full admission. - Vital Signs Vital signs: Temp Pulse Resp BP Pulse Ox 101.2 F H 147 H 21 H 103/63 95 10/19/20 21:59 10/19/20 21:46 10/20/20 01:01 10/20/20 01:01 10/20/20 01:01 - Laboratory Results Result Diagrams: 10/19/20 20:58 10/19/20 20:58 Laboratory Results Interpreted: 10/19/20 10/19/20 10/19/20 20:58 20:58 20:58 Band Neutrophils % 14 H Lymphocytes % (Manual) 7 L Monocytes % (Manual) 1 L Abs Lymphs (Manual) 0.4 L VBG pH 7.43 H Sodium 134.7 L Creatinine 0.51 L Glucose 317 H Lactic Acid Urine Glucose (UA) Urine Ketones 10/19/20 10/20/20 20:58 00:59 Band Neutrophils % Lymphocytes % (Manual) Monocytes % (Manual) Abs Lymphs (Manual) VBG pH Sodium Creatinine Glucose Lactic Acid 3.0 H Urine Glucose (UA) >=500 H Urine Ketones 80 H Critical Laboratory Results Reviewed: No Critical Results - Radiology Results Critical Radiology Results Reviewed: No Critical Results Discharge - Discharge Clinical Impression: Left breast abscess, Tachycardia, Bandemia, Lactic acidosis Uncontrolled diabetes mellitus Qualifiers: Diabetes mellitus type: type 2 Glycemic state: with hyperglycemia Qualified Code(s): E11.65 - Type 2 diabetes mellitus with hyperglycemia Fever Qualifiers: Fever type: unspecified Qualified Code(s): R50.9 - Fever, unspecified Condition: Stable Disposition: ADMITTED INPATIENT Admitting Provider: Unit Admitted: Medical Floor
[2020-10-19 23:21] LABS: HEMATOCRIT 43.2 % (36.0-47.0); HEMOGLOBIN 14.5 g/dL (12.0-15.5); MEAN CORPUSCULAR HEMOGLOBIN 27.8 pg (27.0-33.4); MEAN CORPUSCULAR HGB CONC 33.5 g/dL (32.0-36.0); MEAN CORPUSCULAR VOLUME 83 fl (80-97); PLATELET COUNT 268 10^3/uL (150-450); RED BLOOD COUNT 5.22 10^6/uL (3.72-5.28); RED CELL DISTRIBUTION WIDTH 13.4 % (11.5-14.0); WHITE BLOOD COUNT 6.2 10^3/uL (4.0-10.5)
[2020-10-19 23:26] LABS: INTERNATIONAL RATION (INR) 0.98; PROTHROMBIN TIME 13.2 SEC (11.4-15.4)
[2020-10-19 23:35] LABS: VENOUS BLOOD BASE EXCESS -0.1 mmol/L; VENOUS BLOOD HCO3 23.8 mmol/L (20-32); VENOUS BLOOD PCO2 36.8 mmHg (35-63); VENOUS BLOOD PH 7.43 (7.30-7.42)
[2020-10-19 23:41] LABS: ALKALINE PHOSPHATASE 112 U/L (38-126); ANION GAP 8 (5-19); ASPARTATE AMINO TRANSFERASE 21 U/L (14-36); BILIRUBIN,DIRECT 0.3 mg/dL (0.0-0.4); BILIRUBIN,TOTAL 0.5 mg/dL (0.2-1.3); BLOOD UREA NITROGEN 11 mg/dL (7-20); CALCIUM 9.6 mg/dL (8.4-10.2); CARBON DIOXIDE 25 mmol/L (22-30); CHLORIDE 102 mmol/L (98-107); GLUCOSE 317 mg/dL (75-110); POTASSIUM 3.9 mmol/L (3.6-5.0); TOTAL PROTEIN 7.2 g/dL (6.3-8.2)
[2020-10-20 00:03] LABS: ABSOLUTE LYMPHOCYTES# (MANUAL) 0.4 10^3/uL (0.5-4.7); ABSOLUTE MONOCYTES # (MANUAL) 0.1 10^3/uL (0.1-1.4); BASOPHILS % (MANUAL) 0 % (0-2); EOSINOPHILS % (MANUAL) 0 % (0-6); LYMPHOCYTES % (MANUAL) 7 % (13-45); METAMYELOCYTES % (MANUAL) 1 % (0-1); MONOCYTES % (MANUAL) 1 % (3-13); SEGMENTED NEUTROPHILS % (MAN) 77 % (42-78); TOTAL CELLS COUNTED 100
[2020-10-20 00:04] LABS: PLATELET COMMENT ADEQUATE; RBC MORPHOLOGY COMMENT NORMO-CYTIC/CHROMIC
[2020-10-20 00:05] LABS: TOXIC VACUOLATION PRESENT
[2020-10-20 00:08] LABS: BAND NEUTROPHILS % (MANUAL) 14 % (3-5)
[2020-10-20] MEDS ORDERED: NORMAL SALINE 1000 ML 1,000 ML IV ONE (00:08)
[2020-10-20 01:24] LABS: APPEARANCE,URINE SLIGHTLY-CLOUDY; BILIRUBIN,URINE NEGATIVE (NEGATIVE); COLOR,URINE YELLOW; GLUCOSE, URINE >=500 mg/dL (NEGATIVE); KETONES,URINE 80 mg/dL (NEGATIVE); PROTEIN,URINE NEGATIVE (NEGATIVE); URINE SPECIFIC GRAVITY 1.028; UROBILINOGEN,URINE NEGATIVE mg/dL (<2.0)
[2020-10-20] MEDS ORDERED: ONDANSETRON HCL INJ/PF 4 MG/2 ML SDV IV PRN (02:00)
[2020-10-20] MEDS ORDERED: ACETAMINOPHEN 325 MG TABLET PO PRN (02:00)
--- NOTE | 2020-10-20 02:07 | PDOC CONSULTATION ---
Consultation Consult Date: 10/20/20 Provider Consulted: RONA FORTUNE Consult reason:: Left breast abscess History of Present Illness Admission Date/PCP: BRITTANEY ZAFAR PA-C History of Present Illness: PRISCILLA RAMOS is a 35 year old female Presents to the emergency department with a several day history of achy feeling, fever and anorexia. She states her left breast has been swollen for weeks if not months. It has recently escalated to a firm baseball sized mass in the upper inner quadrant of the left breast. Patient seen emergency department, found to have a red swollen breast, surgery was consulted. Patient was advised admission to the medicine service with surgicalist team consulting. Of note patient's blood sugar on admission was 317. Past Medical History Past Medical History: Obesity, COPD, smoker abuse, reflux disease, depression, diabetes mellitus Cardiac Medical History: Reports: Hyperlipidema, Hypertension Denies: Coronary Artery Disease, Myocardial Infarction Pulmonary Medical History: Denies: Asthma, Bronchitis, Chronic Obstructive Pulmonary Disease (COPD), Pneumonia Neurological Medical History: Reports: Migraine Denies: Seizures Endocrine Medical History: Reports: Diabetes Mellitus Type 2 GI Medical History: Reports: Gastroesophageal Reflux Disease Musculoskeltal Medical History: Denies: Arthritis Psychiatric Medical History: Reports: Depression Hematology: Denies: Anemia Past Surgical History Past Surgical History: Reports: Section - x2 Social History Information Source: Patient Smoking Status: Never Smoker Electronic Cigarette use?: No Hx Recreational Drug Use: No Hx Prescription Drug Abuse: No Family History Family History: None, Reviewed & Not Pertinent Parental Family History Reviewed: No Children Family History Reviewed: No Sibling(s) Family History Reviewed.: No Medication/Allergy Home Medications: Canagliflozin [Invokana] 0 04/23/13 Hydrocodone Bit/Acetaminophen [Vicodin 5-500 mg Tablet] 1 - 2 tab PO Q4H PRN #15 tablet 04/23/13 Lisinopril [Prinivil 2.5 mg Tablet] 0 04/23/13 Simvastatin [Zocor 5 mg Tablet] 0 04/23/13 Sitagliptin Phos/Metformin HCl [Janumet 50-1,000 mg Tablet] 0 04/23/13 Oxycodone HCl/Acetaminophen [Percocet 5-325 mg Tablet] 1 - 2 tab PO ASDIR PRN #25 tablet 07/04/13 Promethazine HCl [Phenergan 25 mg Tablet] 25 - 50 mg PO ASDIR PRN #12 tablet 07/04/13 Cephalexin Monohydrate [Keflex 500 mg Capsule] 500 mg PO BID #14 capsule 09/17/15 Phenazopyridine HCl [Pyridium 200 mg Tablet] 200 mg PO TID #15 tablet 09/17/15 Fluconazole [Diflucan] 150 mg PO DAILY #6 tablet 03/07/16 Nystatin/Triamcin [Nystatin-Triamcinolone Ointm] 30 gm TP BID #1 oint..gm. 03/07/16 Doxycycline Hyclate 100 mg PO BID 5 Days #10 tablet. 02/01/20 Ibuprofen [Ibu] 800 mg PO Q8 10 Days #30 tablet 02/01/20 Insulin Regular, Human [Novolin R] 02/01/20 Vit,Calc76/Iron/Folic [Prenatabs Rx Tablet] 02/01/20 Allergies/Adverse Reactions: No Known Allergies Allergy (Unverified 02/02/20 12:18) Review of Systems Constitutional: ABSENT: chills, fever(s), headache(s), weight gain, weight loss Eyes: ABSENT: visual disturbances Ears: ABSENT: hearing changes Respiratory: PRESENT: cough Gastrointestinal: ABSENT: abdominal pain, constipation, diarrhea, hematemesis, hematochezia, nausea, vomiting Genitourinary: ABSENT: dysuria, hematuria Integumentary: ABSENT: rash, wounds Neurological: ABSENT: abnormal gait, abnormal speech, confusion, dizziness, focal weakness, syncope Psychiatric: PRESENT: anxiety Endocrine: ABSENT: cold intolerance, heat intolerance, polydipsia, polyuria Hematologic/Lymphatic: ABSENT: easy bleeding, easy bruising Physical Exam Vital Signs: Temp Pulse Resp BP Pulse Ox 101.2 F H 147 H 21 H 103/63 95 10/19/20 21:59 10/19/20 21:46 10/20/20 01:01 10/20/20 01:01 10/20/20 01:01 Intake & Output 10/18/20 10/19/20 10/20/20 06:59 06:59 06:59 Intake Total 2049 Balance 2049 Weight 98.4 kg General appearance: PRESENT: no acute distress Head exam: PRESENT: normocephalic Eye exam: PRESENT: EOMI Mouth exam: PRESENT: dry mucosa Neck exam: PRESENT: full ROM Respiratory exam: PRESENT: rhonchi Pulses: PRESENT: normal carotid pulses, normal radial pulses, normal femoral pulses Breast: PRESENT: Other - Bilateral horizontal nipple piercings with barbells; enlarged left upper outer quadrant breast mass erythematous overlying skin and tender. GI/Abdominal exam: PRESENT: soft Rectal exam: PRESENT: deferred Extremities exam: PRESENT: full ROM Musculoskeletal exam: PRESENT: full ROM Neurological exam: PRESENT: oriented to person, oriented to place, oriented to time, oriented to situation Psychiatric exam: PRESENT: appropriate affect Skin exam: PRESENT: dry Results Laboratory Results: 10/19/20 20:58 10/19/20 20:58 10/19/20 10/19/20 10/19/20 20:58 20:58 20:58 WBC 6.2 RBC 5.22 Hgb 14.5 Hct 43.2 MCV 83 MCH 27.8 MCHC 33.5 RDW 13.4 Plt Count 268 Seg Neutrophils % Not Reportable VBG pH 7.43 H VBG pCO2 36.8 VBG HCO3 23.8 VBG Base Excess -0.1 Sodium 134.7 L Potassium 3.9 Chloride 102 Carbon Dioxide 25 Anion Gap 8 BUN 11 Creatinine 0.51 L Est GFR ( Amer) > 60 Glucose 317 H Lactic Acid Calcium 9.6 Total Bilirubin 0.5 AST 21 Alkaline Phosphatase 112 Total Protein 7.2 Albumin 4.0 Serum HCG, Qual Urine Color Urine Appearance Urine pH Ur Specific [place] Urine Protein Urine Glucose (UA) Urine Ketones Urine Blood Urine RBC (Auto) 10/19/20 10/19/20 10/20/20 20:58 20:58 00:37 WBC RBC Hgb Hct MCV MCH MCHC RDW Plt Count Seg Neutrophils % VBG pH VBG pCO2 VBG HCO3 VBG Base Excess Sodium Potassium Chloride Carbon Dioxide Anion Gap BUN Creatinine Est GFR ( Amer) Glucose Lactic Acid 3.0 H 1.2 Calcium Total Bilirubin AST Alkaline Phosphatase Total Protein Albumin Serum HCG, Qual NEGATIVE Urine Color Urine Appearance Urine pH Ur Specific [place] Urine Protein Urine Glucose (UA) Urine Ketones Urine Blood Urine RBC (Auto) 10/20/20 00:59 WBC RBC Hgb Hct MCV MCH MCHC RDW Plt Count Seg Neutrophils % VBG pH VBG pCO2 VBG HCO3 VBG Base Excess Sodium Potassium Chloride Carbon Dioxide Anion Gap BUN Creatinine Est GFR ( Amer) Glucose Lactic Acid Calcium Total Bilirubin AST Alkaline Phosphatase Total Protein Albumin Serum HCG, Qual Urine Color YELLOW Urine Appearance SLIGHTLY-CLOUDY Urine pH 5.0 Ur Specific [place] 1.028 Urine Protein NEGATIVE Urine Glucose (UA) >=500 H Urine Ketones 80 H Urine Blood NEGATIVE Urine RBC (Auto) 0 Impressions: Chest X-Ray 10/19/20 22:04 IMPRESSION: No acute cardiopulmonary abnormalities. Assessment & Plan - Diagnosis (1) Left breast abscess Is this a current diagnosis for this admission?: Yes Plan: Impression: Left breast abscess and 35-year-old obese white female with diabetes mellitus Recommendations: 1. Admit to hospitalist service with surgery consulting; check rapid Covid test 2. Initiate intravenous antibiotics, IV fluids. 3. Take patient to the operating room for drainage of left breast abscess, packing versus drain placement, Dr. Fortune, October 20 (2) Morbid obesity Is this a current diagnosis for this admission?: Yes (3) Hyperlipidemia Is this a current diagnosis for this admission?: Yes (4) Hypertension Is this a current diagnosis for this admission?: Yes (5) Uncontrolled diabetes mellitus Is this a current diagnosis for this admission?: Yes (6) Depression Is this a current diagnosis for this admission?: Yes - Time Time Spent: 30 to 50 Minutes Smoking Cessation Education: 3 to 10 minutes Anticipated discharge: Home Anticipated DC Timeframe: within 48 hours
[2020-10-20] MEDS ORDERED: VANCOMYCIN HCL 0 MG in DEXTROSE 5%-WATER 250 ML IV NR (02:15)
--- NOTE | 2020-10-20 02:23 | PDOC H&P ---
History of Present Illness Admission Date/PCP: BRITTANEY ZAFAR PA-C Patient complains of: Left breast pain, fever History of Present Illness: PRISCILLA RAMOS is a 35 year old female with a history of poorly controlled type 2 diabetes and obesity who presents with 3 weeks duration of left breast swelling. Over the past week she states that the swelling has gotten bigger. She was seen as outpatient about 2 weeks back and had ultrasound of the breast. She was told that she has breast abscess but she states that she has not been able to get it drained as outpatient. This morning she developed fever, chills, nausea, vomiting and pain worse and became intolerable and presented to the ED for further evaluation and treatment. She states that currently she is not on any antibiotic. She denies any cough, dizziness, runny nose, congestion, abdominal pain, or any recent sick contact history. On presentation to the ED patient was febrile with a temperature of 101.2 and tachycardic with a heart rate of 147 blood pressure was stable at 119/69. She had elevated lactic acid level and patient was hydrated per sepsis protocol and heart rate improved to low 100s. Surgery was consulted at the ED and recommended admitting patient to medical service due to poorly controlled diabetes and concern for sepsis with the plan to do I&D of the left breast abscess. Past Medical History Cardiac Medical History: Reports: Hyperlipidema, Hypertension Denies: Coronary Artery Disease, Myocardial Infarction Pulmonary Medical History: Denies: Asthma, Bronchitis, Chronic Obstructive Pulmonary Disease (COPD), Pneumonia Neurological Medical History: Reports: Migraine Denies: Seizures Endocrine Medical History: Reports: Diabetes Mellitus Type 2 GI Medical History: Reports: Gastroesophageal Reflux Disease Musculoskeltal Medical History: Denies: Arthritis Psychiatric Medical History: Reports: Depression Hematology: Denies: Anemia Past Surgical History Past Surgical History: Reports: Section - x2 Social History Information Source: Patient Lives with: Family Smoking Status: Never Smoker Electronic Cigarette use?: No Hx Recreational Drug Use: No Hx Prescription Drug Abuse: No - Advance Directive Resuscitation Status: Full Code Family History Family History: None, Reviewed & Not Pertinent Parental Family History Reviewed: Yes Children Family History Reviewed: Yes Sibling(s) Family History Reviewed.: Yes Medication/Allergy Home Medications: Canagliflozin [Invokana] 0 04/23/13 Hydrocodone Bit/Acetaminophen [Vicodin 5-500 mg Tablet] 1 - 2 tab PO Q4H PRN #15 tablet 07/21/13 Lisinopril [Prinivil 2.5 mg Tablet] 0 04/23/13 Simvastatin [Zocor 5 mg Tablet] 0 04/23/13 Sitagliptin Phos/Metformin HCl [Janumet 50-1,000 mg Tablet] 0 04/23/13 Oxycodone HCl/Acetaminophen [Percocet 5-325 mg Tablet] 1 - 2 tab PO ASDIR PRN #25 tablet 07/04/13 Promethazine HCl [Phenergan 25 mg Tablet] 25 - 50 mg PO ASDIR PRN #12 tablet 07/04/13 Cephalexin Monohydrate [Keflex 500 mg Capsule] 500 mg PO BID #14 capsule 09/17/15 Phenazopyridine HCl [Pyridium 200 mg Tablet] 200 mg PO TID #15 tablet 09/17/15 Fluconazole [Diflucan] 150 mg PO DAILY #6 tablet 03/07/16 Nystatin/Triamcin [Nystatin-Triamcinolone Ointm] 30 gm TP BID #1 oint..gm. 01/17 Doxycycline Hyclate 100 mg PO BID 5 Days #10 tablet. 02/01/20 Ibuprofen [Ibu] 800 mg PO Q8 10 Days #30 tablet 02/01/20 Insulin Regular, Human [Novolin R] 02/01/20 Vit,Calc76/Iron/Folic [Prenatabs Rx Tablet] 02/01/20 Allergies/Adverse Reactions: No Known Allergies Allergy (Unverified 02/02/20 12:18) Review of Systems Constitutional: PRESENT: as per HPI Eyes: ABSENT: visual disturbances Ears: ABSENT: hearing changes Breasts: PRESENT: as per HPI Cardiovascular: ABSENT: chest pain, dyspnea on exertion, edema, orthropnea, palpitations Respiratory: ABSENT: cough, hemoptysis Gastrointestinal: PRESENT: as per HPI Genitourinary: ABSENT: dysuria, hematuria Musculoskeletal: ABSENT: joint swelling Integumentary: ABSENT: rash, wounds Neurological: ABSENT: abnormal gait, abnormal speech, confusion, dizziness, focal weakness, syncope Psychiatric: ABSENT: anxiety, depression, homidical ideation, suicidal ideation Endocrine: ABSENT: cold intolerance, heat intolerance, polydipsia, polyuria Hematologic/Lymphatic: ABSENT: easy bleeding, easy bruising Physical Exam Vital Signs: Temp Pulse Resp BP Pulse Ox 101.2 F H 147 H 21 H 103/63 95 10/19/20 21:59 10/19/20 21:46 10/20/20 01:01 10/20/20 01:01 10/20/20 01:01 Intake & Output 10/18/20 10/19/20 10/20/20 06:59 06:59 06:59 Intake Total 2049 Balance 2049 Weight 98.4 kg Additional comments: GENERAL APPEARANCE: Alert and oriented x3, in no acute distress HEENT: Normocephalic and atraumatic. No scleral icterus. Moist oral mucosa NECK: Supple. No lymphadenopathy or tenderness. No carotid bruit. No JVD CHEST: Symmetric. Nontender to palpation. There is a 4 x 5 cm indurated mass on the left upper quadrant of the left breast with hyperemia of the skin overlying it. There is mild tenderness to palpation. Patient has bilateral nipple piercing but there is no nipple discharge or retraction. There is no axillary lymphadenopathy. LUNGS: Clear with good air entry bilaterally. No wheezing or crackles HEART: Regular rate and rhythm with normal S1 and S2. No murmurs, gallops, or rubs. ABDOMEN: Flat, soft, active bowel sounds, no direct or rebound tenderness. No organomegaly detected. No CVA tenderness EXTREMITIES: No cyanosis, clubbing, or edema. MUSCULOSKELETAL: No deformity, atrophy or swelling noted PSYCHIATRIC: Recent and remote memory is intact. Appropriate mood and affect. SKIN: Warm, dry, and well perfused. No lesions or rashes are noted. NEUROLOGIC: No focal sensory or motor deficits are noted. Results Laboratory Results: 10/19/20 20:58 10/19/20 20:58 10/19/20 10/19/20 10/19/20 20:58 20:58 20:58 WBC 6.2 RBC 5.22 Hgb 14.5 Hct 43.2 MCV 83 MCH 27.8 MCHC 33.5 RDW 13.4 Plt Count 268 Seg Neutrophils % Not Reportable VBG pH 7.43 H VBG pCO2 36.8 VBG HCO3 23.8 VBG Base Excess -0.1 Sodium 134.7 L Potassium 3.9 Chloride 102 Carbon Dioxide 25 Anion Gap 8 BUN 11 Creatinine 0.51 L Est GFR ( Amer) > 60 Glucose 317 H Lactic Acid Calcium 9.6 Total Bilirubin 0.5 AST 21 Alkaline Phosphatase 112 Total Protein 7.2 Albumin 4.0 Serum HCG, Qual Urine Color Urine Appearance Urine pH Ur Specific [place] Urine Protein Urine Glucose (UA) Urine Ketones Urine Blood Urine RBC (Auto) 10/19/20 10/19/20 10/20/20 20:58 20:58 00:37 WBC RBC Hgb Hct MCV MCH MCHC RDW Plt Count Seg Neutrophils % VBG pH VBG pCO2 VBG HCO3 VBG Base Excess Sodium Potassium Chloride Carbon Dioxide Anion Gap BUN Creatinine Est GFR ( Amer) Glucose Lactic Acid 3.0 H 1.2 Calcium Total Bilirubin AST Alkaline Phosphatase Total Protein Albumin Serum HCG, Qual NEGATIVE Urine Color Urine Appearance Urine pH Ur Specific [place] Urine Protein Urine Glucose (UA) Urine Ketones Urine Blood Urine RBC (Auto) 10/20/20 00:59 WBC RBC Hgb Hct MCV MCH MCHC RDW Plt Count Seg Neutrophils % VBG pH VBG pCO2 VBG HCO3 VBG Base Excess Sodium Potassium Chloride Carbon Dioxide Anion Gap BUN Creatinine Est GFR ( Amer) Glucose Lactic Acid Calcium Total Bilirubin AST Alkaline Phosphatase Total Protein Albumin Serum HCG, Qual Urine Color YELLOW Urine Appearance SLIGHTLY-CLOUDY Urine pH 5.0 Ur Specific [place] 1.028 Urine Protein NEGATIVE Urine Glucose (UA) >=500 H Urine Ketones 80 H Urine Blood NEGATIVE Urine RBC (Auto) 0 Impressions: Chest X-Ray 10/19/20 22:04 IMPRESSION: No acute cardiopulmonary abnormalities. Assessment and Plan - Diagnosis (1) Left breast abscess Is this a current diagnosis for this admission?: Yes Plan: Patient presents with a lump on her left breast with associated pain and fever She initially noticed the swelling 3 weeks back and had ultrasound as outpatient which suggested breast abscess Currently presents with signs of sepsis Breast ultrasound pending Surgery consulted for possible I&D Continue IV antibiotics Follow-up with culture and sensitivities (2) Sepsis Is this a current diagnosis for this admission?: Yes Plan: Patient presents with nausea, vomiting, fever Was tachycardic on presentation with heart rate of 147 and had a fever of 101.2 Lactic acid level was elevated at 3 WBC count was 5.4 but has 14% bands Meets sepsis criteria, but likely focus being breast abscess Chest x-ray shows no acute findings Was hydrated per sepsis criteria at the ED Started on vancomycin to cover for MRSA from possible breast abscess Surgery to do I&D of breast abscess Follow-up with culture and sensitivities and adjust antibiotics accordingly (3) Lactic acidosis Is this a current diagnosis for this admission?: Yes Plan: Possibly due to sepsis Continue IV antibiotics and hydration as stated above Continue monitoring lactic acid level, CBC (4) Uncontrolled diabetes mellitus Qualifiers: Diabetes mellitus type: type 2 Glycemic state: with hyperglycemia Qualified Code(s): E11.65 - Type 2 diabetes mellitus with hyperglycemia Is this a current diagnosis for this admission?: Yes Plan: Random blood sugar on this presentation was 317 Patient admits that she has not been compliant with her medication She has type 2 diabetes and was supposed to be on the newer oral hypoglycemic with has not been able to afford it Placed her on sliding scale insulin, Accu-Chek and hypoglycemia protocol Will obtain A1c in the a.m. (5) Depression Is this a current diagnosis for this admission?: Yes Plan: Currently denies any SI/HI Continue home medications (6) Hyperlipidemia Is this a current diagnosis for this admission?: Yes Plan: Continue simvastatin (7) Morbid obesity Is this a current diagnosis for this admission?: Yes Plan: BMI was 42 on this presentation Continue encouragement of her to do regular exercise and make dietary adjustments - Time Time Spent with patient: 35 or more minutes Total Critical Time (Minutes): 45 Medications reviewed and adjusted accordingly: Yes Anticipated Discharge Disposition: Home, Self Care Anticipated Discharge Timeframe: within 48 hours - Inpatient Certification Based on my medical assessment, after consideration of the patient's comorbidities, presenting symptoms, or acuity I expect that the services needed warrant INPATIENT care.: Yes I certify that my determination is in accordance with my understanding of Medicare's requirements for reasonable and necessary INPATIENT services [42 CFR 412.3e].: Yes Medical Necessity: Failure to Improve With Outpatient Therapy, Need Close Monitoring Due to Risk of Patient Decompensation, Need For IV Fluids, Need for Pain Control, Need for IV Antibiotics Post Hospital Care: D/C or Transfer Summary
[2020-10-20] MEDS ORDERED: DEXTROSE 40% GEL 15 GM TUBE PO PRN ×2 (02:25)
[2020-10-20] MEDS ORDERED: DEXTROSE 50%-WATER 25 GM/50 ML DISP.SYRIN IV PRN ×2 (02:25)
[2020-10-20] MEDS ORDERED: GLUCAGON,HUMAN RECOMB 1 MG INJ IM PRN (02:25)
[2020-10-20] MEDS: RINGERS SOLUTION,LACTATED 1,000 ML IV PRN (04:42)
[2020-10-20] MEDS ORDERED: INSULIN REG, HUMAN 100 UNIT/ML 3 ML VIAL (PYX) SUBCUT ONE (04:53)
[2020-10-20 05:34] LABS: HEMATOCRIT 38.5 % (36.0-47.0); HEMOGLOBIN 12.7 g/dL (12.0-15.5); MEAN CORPUSCULAR HEMOGLOBIN 27.5 pg (27.0-33.4); MEAN CORPUSCULAR HGB CONC 32.9 g/dL (32.0-36.0); MEAN CORPUSCULAR VOLUME 84 fl (80-97); PLATELET COUNT 258 10^3/uL (150-450); RED BLOOD COUNT 4.61 10^6/uL (3.72-5.28); RED CELL DISTRIBUTION WIDTH 13.6 % (11.5-14.0)
[2020-10-20 05:49] LABS: WHITE BLOOD COUNT 16.3 10^3/uL (4.0-10.5)
[2020-10-20 06:02] LABS: ABSOLUTE LYMPHOCYTES# (MANUAL) 0.5 10^3/uL (0.5-4.7); ABSOLUTE MONOCYTES # (MANUAL) 0.5 10^3/uL (0.1-1.4); BAND NEUTROPHILS % (MANUAL) 8 % (3-5); BASOPHILS % (MANUAL) 0 % (0-2); EOSINOPHILS % (MANUAL) 0 % (0-6); LYMPHOCYTES % (MANUAL) 2 % (13-45); METAMYELOCYTES % (MANUAL) 1 % (0-1); MONOCYTES % (MANUAL) 3 % (3-13); SEGMENTED NEUTROPHILS % (MAN) 85 % (42-78); TOTAL CELLS COUNTED 100
[2020-10-20 06:03] LABS: PLATELET COMMENT ADEQUATE; RBC MORPHOLOGY COMMENT NORMO-CYTIC/CHROMIC
[2020-10-20 06:05] LABS: ANION GAP 8 (5-19); BLOOD UREA NITROGEN 8 mg/dL (7-20); CALCIUM 8.2 mg/dL (8.4-10.2); CARBON DIOXIDE 22 mmol/L (22-30); CHLORIDE 107 mmol/L (98-107); GLUCOSE 316 mg/dL (75-110); POTASSIUM 3.8 mmol/L (3.6-5.0)
[2020-10-20] MEDS: INSULIN REG, HUMAN 100 UNIT/ML 3 ML VIAL (PYX) SUBCUT SCH ×4 (07:50→22:14)
[2020-10-20] MEDS ORDERED: VANCOMYCIN HCL 1,250 MG in DEXTROSE 5%-WATER 250 ML IV ONE (08:00)
[2020-10-20] MEDS ORDERED: FENTANYL CITRATE INJ/PF 100 MCG/2 ML AMPUL ONE (12:14)
[2020-10-20] MEDS ORDERED: LIDOCAINE 2% INJ-PF (20 MG/ML) 10 ML AMPUL ONE (12:14)
[2020-10-20] MEDS ORDERED: DEXAMETHASONE SOD PHOSPHATE INJ 4 MG/1 ML VIAL ONE (12:14)
[2020-10-20] MEDS ORDERED: HYDROMORPHONE HCL INJ/PF 2 MG/ML AMPULE ONE (12:14)
[2020-10-20] MEDS ORDERED: ONDANSETRON HCL INJ/PF 4 MG/2 ML SDV ONE (12:14)
[2020-10-20] MEDS ORDERED: MIDAZOLAM 2 MG/2 ML INJ ONE (12:14)
[2020-10-20] MEDS ORDERED: PROPOFOL INJ 200 MG/20 ML VIAL IV ONE (12:15)
[2020-10-20] MEDS ORDERED: BUPIVACAINE HCL 0.25 % INJ/PF (2.5 MG/1 ML) 30 ML VIAL ONE (14:05)
--- NOTE | 2020-10-20 15:04 | Operative Report ---
Operative Report DATE OF SURGERY: 10/20/20 PREOPERATIVE DIAGNOSIS: 1. Left breast abscess. 2. History of nipple piercin g. 3. Morbid obesity POSTOPERATIVE DIAGNOSIS: Same OPERATION: Excisional debridement drainage, packing left breast abscess SURGEON: RONA FORTUNE ANESTHESIA: GA TISSUE REMOVED OR ALTERED: Pus and necrotic fat left breast COMPLICATIONS: None ESTIMATED BLOOD LOSS: Minimal INTRAOPERATIVE FINDINGS: See below PROCEDURE: The patient was taken to the main operating room where general anesthesia was induced. Left arm was abducted, left breast prepped draped sterile fashion. Surgical plan surgical timeout were conducted. The patient had an obvious left breast mass consistent with abscess. There was surrounding erythema, and partial amputation of the left nipple. A narrow elliptical excision was made in the skin from the 130 to the 2:30 position left breast 6 cm from the nipple in a curvilinear fashion. We immediately got into ulysses pus and this was sent for Gram stain culture and sensitivity. Suction and index finger dissection broke up all the loculations of the abscess extending towards the retroareolar region, and the lower outer quadrant of the left breast. All pus was evacuated, and several chunks of necrotic fat cauterized and removed. We irrigated the cavity with saline, and packed it with one half Curlex soaked in Betadine. 4 x 4's applied. Patient tolerated procedure well. Patient was extubated taken to the recovery room in stable condition
[2020-10-20] MEDS ORDERED: OXYCODONE-ACETAMINOPHEN 5-325 MG TABLET ONE (15:57)
[2020-10-20] MEDS: KETOROLAC TROMETHAMINE INJ/PF 30 MG/1 ML SDV IV SCH (17:26)
[2020-10-20] MEDS: VANCOMYCIN HCL 1,000 MG in DEXTROSE 5%-WATER 250 ML IV SCH (17:30)
--- NOTE | 2020-10-20 20:44 | EKG REPORT ---
SEVERITY:- ABNORMAL ECG - SINUS TACHYCARDIA NONSPECIFIC T ABNORMALITIES, DIFFUSE LEADS : Confirmed by: Tamera Cooper MD 20-Oct-2020 20:43:39
[2020-10-20] MEDS: OXYCODONE-ACETAMINOPHEN 5-325 MG TABLET PO PRN (21:48)
[2020-10-21] MEDS: KETOROLAC TROMETHAMINE INJ/PF 30 MG/1 ML SDV IV SCH ×5 (00:51→23:33)
[2020-10-21] MEDS: RINGERS SOLUTION,LACTATED 1,000 ML IV PRN (00:55)
[2020-10-21] MEDS: VANCOMYCIN HCL 1,000 MG in DEXTROSE 5%-WATER 250 ML IV SCH ×2 (01:03→09:58)
[2020-10-21 04:59] LABS: ABSOLUTE LYMPHOCYTES (AUTO) 0.9 10^3/uL (0.5-4.7); ABSOLUTE MONOCYTES (AUTO) 0.7 10^3/uL (0.1-1.4); ABSOLUTE NEUT (AUTO) 9.4 10^3/uL (1.7-8.2); BASOPHILS % (AUTO) 0.4 % (0-2); EOSINOPHILS % (AUTO) 0.1 % (0-6); HEMATOCRIT 36.3 % (36.0-47.0); LYMPHOCYTES % (AUTO) 8.1 % (13-45); MEAN CORPUSCULAR HEMOGLOBIN 27.4 pg (27.0-33.4); MEAN CORPUSCULAR VOLUME 83 fl (80-97); PLATELET COUNT 200 10^3/uL (150-450); RED BLOOD COUNT 4.36 10^6/uL (3.72-5.28); RED CELL DISTRIBUTION WIDTH 13.6 % (11.5-14.0); SEGMENTED NEUTROPHILS % (AUTO) 85.4 % (42-78); TOTAL CELLS COUNTED % (AUTO) 100 %
[2020-10-21] MEDS: OXYCODONE-ACETAMINOPHEN 5-325 MG TABLET PO PRN (05:36)
[2020-10-21] MEDS ORDERED: INFLUENZA QUAD (6MOS+) 2020-21 VAC 0.5 ML SYR IM ONE (08:00)
[2020-10-21] MEDS: INSULIN REG, HUMAN 100 UNIT/ML 3 ML VIAL (PYX) SUBCUT SCH ×4 (08:16→22:46)
--- NOTE | 2020-10-21 13:38 | PDOC PROGRESS REPORT ---
Subjective Date:: 10/21/20 Reason For Visit: SEPSIS,LEFT BREAST ABCESS,LACTIC ACIDOSIS Physical Exam Vital Signs: Temp Pulse Resp BP Pulse Ox 97.3 F 64 17 114/76 98 10/21/20 11:11 10/21/20 11:11 10/21/20 11:11 10/21/20 11:11 10/21/20 07:13 Intake & Output 10/20/20 10/21/20 10/22/20 06:59 06:59 06:59 Intake Total 3050 2375 1490 Output Total 1999 Balance 3050 375 1490 Weight 99.2 kg 102 kg Results Laboratory Results: 10/21/20 04:27 10/20/20 05:12 10/21/20 04:27 WBC 11.0 H RBC 4.36 Hgb 12.0 Hct 36.3 MCV 83 MCH 27.4 MCHC 33.0 RDW 13.6 Plt Count 200 Seg Neutrophils % 85.4 H Impressions: Chest X-Ray 10/19/20 22:04 IMPRESSION: No acute cardiopulmonary abnormalities. Assessment & Plan - Diagnosis (1) Left breast abscess Is this a current diagnosis for this admission?: Yes - Time Anticipated Discharge Disposition: Home, Self Care Anticipated Discharge Timeframe: within 48 hours - Plan Summary Plan Summary: 35-year-old female status post incision and drainage of a large left breast abscess. I have removed the packing today and inspected the wound. There is still some induration, but there is no erythema or active purulence. I have repacked the wound. Initiate damp to dry dressing changes with packing twice daily. As soon as the patient's blood sugars are controlled, and her antibiotics have been tailored, she may be discharged home. Surgery will continue to follow with you.
[2020-10-21 13:56] LABS: PATH REVIEW PATHOLOGIST REVIEWED
--- NOTE | 2020-10-21 14:23 | PDOC PROGRESS REPORT ---
Subjective Date:: 10/21/20 Subjective:: Patient states she feels better, less pain Reason For Visit: SEPSIS,LEFT BREAST ABCESS,LACTIC ACIDOSIS Physical Exam Vital Signs: Temp Pulse Resp BP Pulse Ox 97.3 F 64 17 114/76 98 10/21/20 11:11 10/21/20 11:11 10/21/20 11:11 10/21/20 11:11 10/21/20 07:13 Intake & Output 10/20/20 10/21/20 10/22/20 06:59 06:59 06:59 Intake Total 3050 2375 1490 Output Total 1999 Balance 3050 375 1490 Weight 99.2 kg 102 kg General appearance: PRESENT: no acute distress, morbidly obese, well-nourished Head exam: PRESENT: atraumatic, normocephalic Eye exam: PRESENT: conjunctiva pink, EOMI, PERRLA. ABSENT: scleral icterus Mouth exam: PRESENT: moist, tongue midline Neck exam: ABSENT: carotid bruit, JVD, lymphadenopathy, thyromegaly Respiratory exam: PRESENT: clear to auscultation selene. ABSENT: rales, rhonchi, wheezes Cardiovascular exam: PRESENT: RRR, +S1, +S2. ABSENT: diastolic murmur, rubs, systolic murmur Pulses: PRESENT: normal dorsalis pedis pul Vascular exam: PRESENT: normal capillary refill Breast: PRESENT: Drainage, Other - L breast with dressing GI/Abdominal exam: PRESENT: normal bowel sounds, soft. ABSENT: distended, guarding, mass, organolmegaly, rebound, tenderness Rectal exam: PRESENT: deferred Extremities exam: PRESENT: full ROM. ABSENT: calf tenderness, clubbing, pedal edema Neurological exam: PRESENT: alert, awake, oriented to person, oriented to place, oriented to time, oriented to situation, CN II-XII grossly intact. ABSENT: motor sensory deficit Psychiatric exam: PRESENT: appropriate affect, normal mood. ABSENT: homicidal ideation, suicidal ideation Skin exam: PRESENT: dry, intact, warm. ABSENT: cyanosis, rash Results Laboratory Results: 10/21/20 04:27 10/20/20 05:12 10/21/20 04:27 WBC 11.0 H RBC 4.36 Hgb 12.0 Hct 36.3 MCV 83 MCH 27.4 MCHC 33.0 RDW 13.6 Plt Count 200 Seg Neutrophils % 85.4 H Impressions: Chest X-Ray 10/19/20 22:04 IMPRESSION: No acute cardiopulmonary abnormalities. Assessment and Plan - Diagnosis (1) Left breast abscess Is this a current diagnosis for this admission?: Yes (2) Morbid obesity Is this a current diagnosis for this admission?: Yes (3) Sepsis Is this a current diagnosis for this admission?: Yes Plan: Patient presents with nausea, vomiting, fever Was tachycardic on presentation with heart rate of 147 and had a fever of 101.2 Lactic acid level was elevated at 3 WBC count was 5.4 but has 14% bands Meets sepsis criteria, but likely focus being breast abscess (4) Uncontrolled diabetes mellitus Qualifiers: Diabetes mellitus type: type 2 Glycemic state: with hyperglycemia Qualified Code(s): E11.65 - Type 2 diabetes mellitus with hyperglycemia Is this a current diagnosis for this admission?: Yes Plan: Random blood sugar on this presentation was 317 Patient admits that she has not been compliant with her medication She has type 2 diabetes and was supposed to be on the newer oral hypoglycemic with has not been able to afford it Placed her on sliding scale insulin, Accu-Chek and hypoglycemia protocol - Plan Summary Summary: Patient is status post I&D of left breast abscess, culture currently yielding group B Streptococcus. Surgery suggest damp to dry dressing changes with packing twice a day. She is currently on vancomycin but based on the culture profile I have changed her to Unasyn for now. She can likely be changed to Augmentin at discharge. Hemoglobin A1c is 9.4. It appears patient was on no medications prior to admission. Requested diabetes educator and started on some Lantus insulin, and to continue the sliding scale for now. Morbid obesity patient needs to lose weight - Time Time Spent with patient: 15-24 minutes Medications reviewed and adjusted accordingly: Yes Anticipated Discharge Disposition: Home, Self Care Anticipated Discharge Timeframe: within 72 hours
[2020-10-21] MEDS: INSULIN GLARGINE,HUM.REC.ANLOG 1,000 UNIT/10 ML VIAL SUBCUT SCH ×2 (15:38→22:47)
[2020-10-21] MEDS: AMPICILLIN SODIUM/SULBACTAM NA 3 GM in NORMAL SALINE 100 ML IV SCH ×2 (17:21→23:33)
[2020-10-22] MEDS: KETOROLAC TROMETHAMINE INJ/PF 30 MG/1 ML SDV IV SCH ×4 (05:41→23:25)
[2020-10-22] MEDS: AMPICILLIN SODIUM/SULBACTAM NA 3 GM in NORMAL SALINE 100 ML IV SCH ×4 (05:41→23:25)
[2020-10-22 07:21] LABS: ABSOLUTE EOSINOPHILS # (AUTO) 0.1 10^3/uL (0.0-0.6); ABSOLUTE LYMPHOCYTES (AUTO) 2.6 10^3/uL (0.5-4.7); ABSOLUTE MONOCYTES (AUTO) 0.6 10^3/uL (0.1-1.4); ABSOLUTE NEUT (AUTO) 3.5 10^3/uL (1.7-8.2); BASOPHILS % (AUTO) 0.6 % (0-2); EOSINOPHILS % (AUTO) 2.1 % (0-6); HEMATOCRIT 35.1 % (36.0-47.0); HEMOGLOBIN 11.3 g/dL (12.0-15.5); LYMPHOCYTES % (AUTO) 37.5 % (13-45); MEAN CORPUSCULAR HEMOGLOBIN 26.9 pg (27.0-33.4); MEAN CORPUSCULAR HGB CONC 32.2 g/dL (32.0-36.0); MEAN CORPUSCULAR VOLUME 84 fl (80-97); MONOCYTES % (AUTO) 8.1 % (3-13); PLATELET COUNT 245 10^3/uL (150-450); RED CELL DISTRIBUTION WIDTH 13.7 % (11.5-14.0); SEGMENTED NEUTROPHILS % (AUTO) 51.7 % (42-78); TOTAL CELLS COUNTED % (AUTO) 100 %; WHITE BLOOD COUNT 6.9 10^3/uL (4.0-10.5)
[2020-10-22 07:46] LABS: BLOOD UREA NITROGEN 13 mg/dL (7-20); CALCIUM 8.8 mg/dL (8.4-10.2); GLUCOSE 244 mg/dL (75-110); POTASSIUM 4.3 mmol/L (3.6-5.0)
[2020-10-22 07:51] LABS: CARBON DIOXIDE 29 mmol/L (22-30); CHLORIDE 108 mmol/L (98-107)
[2020-10-22 07:56] LABS: ANION GAP 3 (5-19)
[2020-10-22] MEDS: INSULIN REG, HUMAN 100 UNIT/ML 3 ML VIAL (PYX) SUBCUT SCH ×4 (08:22→22:15)
--- NOTE | 2020-10-22 09:29 | PDOC PROGRESS REPORT ---
Subjective Date:: 10/22/20 Subjective:: feels ok Reason For Visit: SEPSIS,LEFT BREAST ABCESS,LACTIC ACIDOSIS Physical Exam Vital Signs: Temp Pulse Resp BP Pulse Ox 97.7 F 65 16 125/68 99 10/22/20 07:16 10/22/20 07:16 10/22/20 07:16 10/22/20 07:16 10/22/20 07:16 Intake & Output 10/21/20 10/22/20 10/23/20 06:59 06:59 06:59 Intake Total 2375 1790 Output Total 1999 Balance 375 1790 Weight 102 kg 104 kg General appearance: PRESENT: no acute distress Head exam: PRESENT: normocephalic Eye exam: PRESENT: EOMI Ear exam: PRESENT: normal external ear exam Mouth exam: PRESENT: moist Neck exam: PRESENT: full ROM Respiratory exam: PRESENT: clear to auscultation selene Cardiovascular exam: PRESENT: RRR Pulses: PRESENT: normal femoral pulses, normal dorsalis pedis pul Vascular exam: PRESENT: normal capillary refill Breast: PRESENT: Drainage - left breast abscess cavity decreased in size packed with gauze min drainage no celluliits GI/Abdominal exam: PRESENT: soft Rectal exam: PRESENT: deferred Extremities exam: PRESENT: full ROM Musculoskeletal exam: PRESENT: ambulatory Neurological exam: PRESENT: alert, awake, oriented to person, oriented to place Psychiatric exam: PRESENT: appropriate affect Skin exam: PRESENT: dry Results Laboratory Results: 10/22/20 06:50 10/22/20 06:50 10/22/20 10/22/20 06:50 06:50 WBC 6.9 RBC 4.20 Hgb 11.3 L Hct 35.1 L MCV 84 MCH 26.9 L MCHC 32.2 RDW 13.7 Plt Count 245 Seg Neutrophils % 51.7 Sodium 140.0 Potassium 4.3 Chloride 108 H Carbon Dioxide 29 Anion Gap 3 L BUN 13 Creatinine 0.52 Est GFR ( Amer) > 60 Glucose 244 H Calcium 8.8 10/19/20 22:58 Blood Blood Culture - Final Group F Beta Streptococcus Impressions: Chest X-Ray 10/19/20 22:04 IMPRESSION: No acute cardiopulmonary abnormalities. Assessment & Plan - Time Anticipated Discharge Disposition: unk Anticipated Discharge Timeframe: unk - Plan Summary Plan Summary: s/p left breast abscess s/p i and d pts wound decreased in size no further drainage no celluliits can be discharged from surgery standpt f/u with Dr Cook in 2-3 weeks instructed on wound care at home please reconsult surgery as necessary.
[2020-10-22] MEDS: INSULIN GLARGINE,HUM.REC.ANLOG 1,000 UNIT/10 ML VIAL SUBCUT SCH ×2 (10:30→22:14)
[2020-10-22 10:40] LABS: VANCOMYCIN,TROUGH < 5.0 ug/mL (5.0-20.0)
--- NOTE | 2020-10-22 12:01 | PDOC PROGRESS REPORT ---
Subjective Date:: 10/22/20 Subjective:: Patient states she feels better, less pain Reason For Visit: SEPSIS,LEFT BREAST ABCESS,LACTIC ACIDOSIS Physical Exam Vital Signs: Temp Pulse Resp BP Pulse Ox 97.7 F 65 16 125/68 99 10/22/20 07:16 10/22/20 07:16 10/22/20 07:16 10/22/20 07:16 10/22/20 07:16 Intake & Output 10/21/20 10/22/20 10/23/20 06:59 06:59 06:59 Intake Total 2375 1790 300 Output Total 2000 Balance 375 1790 300 Weight 102 kg 104 kg General appearance: PRESENT: no acute distress, well-developed, well-nourished Head exam: PRESENT: atraumatic, normocephalic Eye exam: PRESENT: conjunctiva pink, EOMI, PERRLA. ABSENT: scleral icterus Ear exam: PRESENT: normal external ear exam Mouth exam: PRESENT: moist, tongue midline Neck exam: ABSENT: carotid bruit, JVD, lymphadenopathy, thyromegaly Respiratory exam: PRESENT: clear to auscultation selene. ABSENT: rales, rhonchi, wheezes Cardiovascular exam: PRESENT: RRR, +S1, +S2. ABSENT: diastolic murmur, rubs, systolic murmur Pulses: PRESENT: normal dorsalis pedis pul Vascular exam: PRESENT: normal capillary refill Breast: PRESENT: Other - L breast dressing with mild drainage GI/Abdominal exam: PRESENT: normal bowel sounds, soft. ABSENT: distended, guarding, mass, organolmegaly, rebound, tenderness Rectal exam: PRESENT: deferred Extremities exam: PRESENT: full ROM. ABSENT: calf tenderness, clubbing, pedal edema Neurological exam: PRESENT: alert, awake, oriented to person, oriented to place, oriented to time, oriented to situation, CN II-XII grossly intact. ABSENT: motor sensory deficit Psychiatric exam: PRESENT: appropriate affect, normal mood. ABSENT: homicidal ideation, suicidal ideation Skin exam: PRESENT: dry, intact, warm. ABSENT: cyanosis, rash Results Laboratory Results: 10/22/20 06:50 10/22/20 09:25 10/22/20 10/22/20 10/22/20 06:50 06:50 09:25 WBC 6.9 RBC 4.20 Hgb 11.3 L Hct 35.1 L MCV 84 MCH 26.9 L MCHC 32.2 RDW 13.7 Plt Count 245 Seg Neutrophils % 51.7 Sodium 140.0 Potassium 4.3 Chloride 108 H Carbon Dioxide 29 Anion Gap 3 L BUN 13 Creatinine 0.52 0.49 L Est GFR ( Amer) > 60 > 60 Glucose 244 H Calcium 8.8 10/19/20 22:58 Blood Blood Culture - Final Group F Beta Streptococcus Impressions: Chest X-Ray 10/19/20 22:04 IMPRESSION: No acute cardiopulmonary abnormalities. Assessment and Plan - Diagnosis (1) Left breast abscess Is this a current diagnosis for this admission?: Yes (2) Morbid obesity Is this a current diagnosis for this admission?: Yes (3) Sepsis Is this a current diagnosis for this admission?: Yes Plan: Patient presents with nausea, vomiting, fever Was tachycardic on presentation with heart rate of 147 and had a fever of 101.2 Lactic acid level was elevated at 3 WBC count was 5.4 but has 14% bands Meets sepsis criteria, but likely focus being breast abscess 10/22 Resolved (4) Uncontrolled diabetes mellitus Qualifiers: Diabetes mellitus type: type 2 Glycemic state: with hyperglycemia Qualified Code(s): E11.65 - Type 2 diabetes mellitus with hyperglycemia Is this a current diagnosis for this admission?: Yes (5) Bacteremia due to group B Streptococcus Is this a current diagnosis for this admission?: Yes - Plan Summary Summary: Patient is status post I&D of left breast abscess, culture currently yielding group B Streptococcus. Surgery suggest damp to dry dressing changes with pac nevaeh twice a day. She is currently on vancomycin but based on the culture profile I have changed her to Unasyn for now. She can likely be changed to Augmentin at discharge. Hemoglobin A1c is 9.4. It appears patient was on no medications prior to admission. Requested certified lactation educator and started on some Lantus insulin, and to continue the sliding scale for now. Morbid obesity patient needs to lose weight 10/22 Blood culture from the is yielding group F beta Streptococcus, same as the culture from the wound abscess. Patient is currently on Unasyn day 2. I will repeat blood culture. Her white count has normalized. The surgery standpoint she can be discharged and follow-up with Dr. Calderon however I will need to repeat blood culture as well as better glycemic control. family living educator is been consulted and patient will also need help to sort out her medications as she has been somewhat noncompliant as she says her insurance sometimes does not cover her insulin Of note patient is not nor is she breast-feeding, this is particularly relevant to her group B Streptococcus infection - Time Time Spent with patient: 15-24 minutes Medications reviewed and adjusted accordingly: Yes Anticipated Discharge Disposition: Home, Self Care Anticipated Discharge Timeframe: within 72 hours
[2020-10-22] MEDS: PSYLLIUM SEED-SF 5.85 GM PACKET PO SCH (17:47)
[2020-10-22] MEDS: DOCUSATE SODIUM 100 MG CAPSULE PO SCH (17:49)
[2020-10-23] MEDS: KETOROLAC TROMETHAMINE INJ/PF 30 MG/1 ML SDV IV SCH ×3 (06:05→18:31)
[2020-10-23] MEDS: AMPICILLIN SODIUM/SULBACTAM NA 3 GM in NORMAL SALINE 100 ML IV SCH ×3 (06:05→18:30)
[2020-10-23 07:33] LABS: ABSOLUTE BASOPHILS # (AUTO) 0.1 10^3/uL (0.0-0.2); ABSOLUTE EOSINOPHILS # (AUTO) 0.1 10^3/uL (0.0-0.6); ABSOLUTE LYMPHOCYTES (AUTO) 2.6 10^3/uL (0.5-4.7); ABSOLUTE MONOCYTES (AUTO) 0.5 10^3/uL (0.1-1.4); ABSOLUTE NEUT (AUTO) 3.3 10^3/uL (1.7-8.2); BASOPHILS % (AUTO) 2.1 % (0-2); EOSINOPHILS % (AUTO) 1.4 % (0-6); HEMATOCRIT 32.9 % (36.0-47.0); HEMOGLOBIN 10.8 g/dL (12.0-15.5); LYMPHOCYTES % (AUTO) 39.7 % (13-45); MEAN CORPUSCULAR HEMOGLOBIN 27.1 pg (27.0-33.4); MEAN CORPUSCULAR HGB CONC 32.9 g/dL (32.0-36.0); MEAN CORPUSCULAR VOLUME 82 fl (80-97); MONOCYTES % (AUTO) 7.5 % (3-13); PLATELET COUNT 250 10^3/uL (150-450); RED CELL DISTRIBUTION WIDTH 13.6 % (11.5-14.0); SEGMENTED NEUTROPHILS % (AUTO) 49.3 % (42-78); TOTAL CELLS COUNTED % (AUTO) 100 %; WHITE BLOOD COUNT 6.6 10^3/uL (4.0-10.5)
[2020-10-23] MEDS: INSULIN REG, HUMAN 100 UNIT/ML 3 ML VIAL (PYX) SUBCUT SCH ×4 (08:36→22:26)
[2020-10-23] MEDS: DOCUSATE SODIUM 100 MG CAPSULE PO SCH ×2 (11:07→18:31)
[2020-10-23] MEDS: INSULIN GLARGINE,HUM.REC.ANLOG 1,000 UNIT/10 ML VIAL SUBCUT SCH (11:08)
[2020-10-23] MEDS: PSYLLIUM SEED-SF 5.85 GM PACKET PO SCH (11:08)
--- NOTE | 2020-10-23 13:04 | PDOC PROGRESS REPORT ---
Subjective Date:: 10/23/20 Subjective:: Patient states she feels better, less pain She denies any fever nausea vomiting. She has less drainage from her wound Reason For Visit: SEPSIS,LEFT BREAST ABCESS,LACTIC ACIDOSIS Physical Exam Vital Signs: Temp Pulse Resp BP Pulse Ox 97.4 F 56 L 17 137/73 H 100 10/23/20 11:27 10/23/20 11:27 10/23/20 11:27 10/23/20 11:27 10/23/20 11:27 Intake & Output 10/22/20 10/23/20 10/24/20 06:59 06:59 06:59 Intake Total 1790 800 240 Balance 1790 800 240 Weight 104 kg 102 kg General appearance: PRESENT: no acute distress, morbidly obese, well-developed, well-nourished Head exam: PRESENT: atraumatic, normocephalic Eye exam: PRESENT: conjunctiva pink, EOMI, PERRLA. ABSENT: scleral icterus Ear exam: PRESENT: normal external ear exam Mouth exam: PRESENT: moist, tongue midline Neck exam: ABSENT: carotid bruit, JVD, lymphadenopathy, thyromegaly Respiratory exam: PRESENT: clear to auscultation selene. ABSENT: rales, rhonchi, wheezes Cardiovascular exam: PRESENT: RRR, +S1, +S2. ABSENT: diastolic murmur, rubs, systolic murmur Pulses: PRESENT: normal dorsalis pedis pul Vascular exam: PRESENT: normal capillary refill Breast: PRESENT: Other - Breast dressing, minimal drainage GI/Abdominal exam: PRESENT: normal bowel sounds, soft. ABSENT: distended, guarding, mass, organolmegaly, rebound, tenderness Rectal exam: PRESENT: deferred Extremities exam: PRESENT: full ROM. ABSENT: calf tenderness, clubbing, pedal edema Neurological exam: PRESENT: alert, awake, oriented to person, oriented to place, oriented to time, oriented to situation, CN II-XII grossly intact. ABSENT: m otor sensory deficit Psychiatric exam: PRESENT: appropriate affect, normal mood. ABSENT: homicidal ideation, suicidal ideation Skin exam: PRESENT: dry, intact, warm. ABSENT: cyanosis, rash Results Laboratory Results: 10/23/20 06:54 10/22/20 09:25 10/23/20 06:54 WBC 6.6 RBC 4.00 Hgb 10.8 L Hct 32.9 L MCV 82 MCH 27.1 MCHC 32.9 RDW 13.6 Plt Count 250 Seg Neutrophils % 49.3 10/20/20 14:45 Breast - Abscess Gram Stain - Final 10/20/20 14:45 Breast - Abscess Wound Culture - Final Group F Beta Streptococcus Anaerococcus (Peptostrep) Sp. Prevotella Species 10/19/20 22:58 Blood Blood Culture - Final Group F Beta Streptococcus Impressions: Chest X-Ray 10/19/20 22:04 IMPRESSION: No acute cardiopulmonary abnormalities. Assessment and Plan - Diagnosis (1) Left breast abscess Is this a current diagnosis for this admission?: Yes (2) Morbid obesity Is this a current diagnosis for this admission?: Yes (3) Sepsis Is this a current diagnosis for this admission?: Yes (4) Uncontrolled diabetes mellitus Qualifiers: Diabetes mellitus type: type 2 Glycemic state: with hyperglycemia Qualified Code(s): E11.65 - Type 2 diabetes mellitus with hyperglycemia Is this a current diagnosis for this admission?: Yes (5) Bacteremia due to group B Streptococcus Is this a current diagnosis for this admission?: Yes - Plan Summary Summary: Patient is status post I&D of left breast abscess, culture currently yielding group B Streptococcus. Surgery suggest damp to dry dressing changes with packing twice a day. She is currently on vancomycin but based on the culture profile I have changed her to Unasyn for now. She can likely be changed to Augmentin at discharge. Hemoglobin A1c is 9.4. It appears patient was on no medications prior to admission. Requested inside contractor sales and started on some Lantus insulin, and to continue the sliding scale for now. Morbid obesity patient needs to lose weight 10/22 Blood culture from the is yielding group F beta Streptococcus, same as the culture from the wound abscess. Patient is currently on Unasyn day 2. I will repeat blood culture. Her white count has normalized. The surgery standpoint she can be discharged and follow-up with Dr. Calderon however I will need to repeat blood culture as well as better glycemic control. environmental health safety engineer is been consulted and patient will also need help to sort out her medications as she has been somewhat noncompliant as she says her insurance sometimes does not cover her insulin Of note patient is not nor is she breast-feeding, this is particularly relevant to her group B Streptococcus infection 10/23 patient is doing well as expected. Repeat blood cultures were done today. If the blood cultures are negative she likely can be discharged home in a.m. On oral antibiotics. Diabetic education is in progress. Plan is for her to follow-up with surgery as outpatient - Time Time Spent with patient: 15-24 minutes Medications reviewed and adjusted accordingly: Yes Anticipated Discharge Disposition: Home, Self Care Anticipated Discharge Timeframe: within 24 hours
[2020-10-23] MEDS ORDERED: INSULIN GLARGINE,HUM.REC.ANLOG 1,000 UNIT/10 ML VIAL SUBCUT SCH (22:00)
[2020-10-24] MEDS: KETOROLAC TROMETHAMINE INJ/PF 30 MG/1 ML SDV IV SCH ×3 (00:21→12:16)
[2020-10-24] MEDS: AMPICILLIN SODIUM/SULBACTAM NA 3 GM in NORMAL SALINE 100 ML IV SCH ×3 (00:21→12:15)
[2020-10-24] MEDS ORDERED: DEXTROSE 50%-WATER 25 GM/50 ML DISP.SYRIN IV PRN ×2 (07:39)
[2020-10-24] MEDS ORDERED: DEXTROSE 40% GEL 15 GM TUBE PO PRN (07:39)
[2020-10-24] MEDS ORDERED: GLUCAGON,HUMAN RECOMB 1 MG INJ IM PRN (07:39)
[2020-10-24] MEDS: INSULIN LISPRO 100 UNIT/ML 3 ML VIAL SUBCUT SCH ×2 (08:23→12:16)
[2020-10-24] MEDS: DOCUSATE SODIUM 100 MG CAPSULE PO SCH (09:35)
[2020-10-24] MEDS: PSYLLIUM SEED-SF 5.85 GM PACKET PO SCH (09:36)
[2020-10-24] MEDS ORDERED: INSULIN GLARGINE,HUM.REC.ANLOG 1,000 UNIT/10 ML VIAL SUBCUT SCH (10:00)
[2020-10-24 11:44] VITALS: BP 138/68
--- NOTE | 2020-10-25 18:55 | PDOC DISCHARGE SUMMARY ---
Impression - Admit/DC Date/PCP Admission Date/Primary Care Provider: 10/20/20 02:45 BRITTANEY ZAFAR PA-C Discharge Date: 10/24/20 - Assessment Summary: Patient is status post I&D of left breast abscess, culture currently yielding group B Streptococcus. Surgery suggest damp to dry dressing changes with packing twice a day. She is currently on vancomycin but based on the culture profile I have changed her to Unasyn for now. She can likely be changed to Augmentin at discharge. Hemoglobin A1c is 9.4. It appears patient was on no medications prior to admission. Requested childbirth educator and started on some Lantus insulin, and to continue the sliding scale for now. Morbid obesity patient needs to lose weight 10/22 Blood culture from the is yielding group F beta Streptococcus, same as the culture from the wound abscess. Patient is currently on Unasyn day 2. I will repeat blood culture. Her white count has normalized. The surgery standpoint she can be discharged and follow-up with Dr. Calderon however I will need to repeat blood culture as well as better glycemic control. parent educator is been consulted and patient will also need help to sort out her medications as she has been somewhat noncompliant as she says her insurance sometimes does not cover her insulin Of note patient is not nor is she breast-feeding, this is particularly relevant to her group B Streptococcus infection 10/23 patient is doing well as expected. Repeat blood cultures were done today. If the blood cultures are negative she likely can be discharged home in a.m. On oral antibiotics. Diabetic education is in progress. Plan is for her to follow-up with surgery as outpatient - Additional Information Resuscitation Status: Full Code Discharge Diet: As Tolerated Discharge Activity: Activity As Tolerated Referrals: RONA CALDERON MD [ACTIVE STAFF] - 10/31/20 2:45 pm (CALL THE OFFICE FOR QUESTIONS AND CONCERNS. CALL TO CONFIRM YOUR APPOINTMENT.) BRITTANEY ZAFAR PA-C [Primary Care Provider] - Follow up as needed Prescriptions: Amoxicillin/Potassium Clav [Augmentin 875-125 Tablet] 1 tab PO BID 10 Days #20 tablet Insulin Lispro [Humalog Kwikpen U-100] 8 unit SQ ACHS 30 Days #5 insuln.pen Insulin Glargine,Hum.rec.anlog [Lantus Insulin 100 Unit/mL Insulin Pen] 20 unit SUBCUT QHS 30 Days #10 ml Home Medications: Amoxicillin/Potassium Clav [Augmentin 875-125 Tablet] 1 tab PO BID 10 Days #20 tablet 10/24/20 Insulin Glargine,Hum.rec.anlog [Lantus Insulin 100 Unit/mL Insulin Pen] 20 unit SUBCUT QHS 30 Days #10 ml 10/24/20 Insulin Lispro [Humalog Kwikpen U-100] 8 unit SQ ACHS 30 Days #5 insuln.pen 10/24/20 History of Present Illiness History of Present Illness: PRISCILLA RAMOS is a 35 year old female, with a history of poorly controlled type 2 diabetes and obesity who presents with 3 weeks duration of left breast swelling. Over the past week she states that the swelling has gotten bigger. She was seen as outpatient about 2 weeks back and had ultrasound of the breast. She was told that she has breast abscess but she states that she has not been able to get it drained as outpatient. This morning she developed fever, chills, nausea, vomiting and pain worse and became intolerable and presented to the ED for further evaluation and treatment. She states that currently she is not on any antibiotic. She denies any cough, dizziness, runny nose, congestion, abdominal pain, or any recent sick contact history. On presentation to the ED patient was febrile with a temperature of 101.2 and tachycardic with a heart rate of 147 blood pressure was stable at 119/69. She had elevated lactic acid level and patient was hydrated per sepsis protocol and heart rate improved to low 100s. Surgery was consulted at the ED and recommended admitting patient to medical service due to poorly controlled diabetes and concern for sepsis with the plan to do I&D of the left breast abscess. Hospital Course Hospital Course: The patient underwent I&D by surgery. She was initially started on vancomycin for MRSA. Blood culture eventually grew group B strep and she was de escalated to Unasyn. She was initially admitted due to sepsis which resolved with IV fluids and abx. Her diabetes was poorly controlled hence she was started on a basal bolus regimen. She was eventually discharged on augmentin, lantus, humalog with follow up with surgery in 2 weeks. parent educator saw her too. Proper wound cleaning was taught to her. Physical Exam Vital Signs: Temp Pulse Resp BP Pulse Ox 98.2 F 56 L 18 138/68 H 96 10/24/20 11:45 10/24/20 11:45 10/24/20 11:45 10/24/20 11:45 10/24/20 11:45 Intake & Output 10/24/20 10/25/20 10/26/20 06:59 06:59 06:59 Intake Total 540 Balance 540 Weight 103.6 kg General appearance: PRESENT: no acute distress, cooperative, morbidly obese Head exam: PRESENT: atraumatic, normocephalic Eye exam: PRESENT: EOMI, PERRLA Mouth exam: PRESENT: moist Neck exam: PRESENT: full ROM Respiratory exam: PRESENT: clear to auscultation selene, symmetrical, unlabored Cardiovascular exam: PRESENT: RRR, +S1, +S2 Pulses: PRESENT: +2 pedal pulses bilateral GI/Abdominal exam: PRESENT: Gleason's sign, normal bowel sounds Extremities exam: PRESENT: full ROM Musculoskeletal exam: PRESENT: full ROM Neurological exam: PRESENT: alert, awake, oriented to person, oriented to place, oriented to time, oriented to situation Psychiatric exam: PRESENT: normal mood Skin exam: PRESENT: normal color Results Laboratory Results: WBC 6.6 10^3/uL (4.0-10.5) 10/23/20 06:54 RBC 4.00 10^6/uL (3.72-5.28) 10/23/20 06:54 Hgb 10.8 g/dL (12.0-15.5) L 10/23/20 06:54 Hct 32.9 % (36.0-47.0) L 10/23/20 06:54 MCV 82 fl (80-97) 10/23/20 06:54 MCH 27.1 pg (27.0-33.4) 10/23/20 06:54 MCHC 32.9 g/dL (32.0-36.0) 10/23/20 06:54 RDW 13.6 % (11.5-14.0) 10/23/20 06:54 Plt Count 250 10^3/uL (150-450) 10/23/20 06:54 Lymph % (Auto) 39.7 % (13-45) 10/23/20 06:54 [place] % (Auto) 7.5 % (3-13) 10/23/20 06:54 Eos % (Auto) 1.4 % (0-6) 10/23/20 06:54 Baso % (Auto) 2.1 % (0-2) H 10/23/20 06:54 Absolute Neuts (auto) 3.3 10^3/uL (1.7-8.2) 10/23/20 06:54 Absolute Lymphs (auto) 2.6 10^3/uL (0.5-4.7) 10/23/20 06:54 Absolute Monos (auto) 0.5 10^3/uL (0.1-1.4) 10/23/20 06:54 Absolute Eos (auto) 0.1 10^3/uL (0.0-0.6) 10/23/20 06:54 Absolute Basos (auto) 0.1 10^3/uL (0.0-0.2) 10/23/20 06:54 Total Counted 100 10/20/20 05:12 Seg Neutrophils % 49.3 % (42-78) 10/23/20 06:54 Seg Neuts % (Manual) 85 % (42-78) H 10/20/20 05:12 Band Neutrophils % 8 % (3-5) H 10/20/20 05:12 Lymphocytes % (Manual) 2 % (13-45) L 10/20/20 05:12 Atypical Lymphs % 1 % (0) 10/20/20 05:12 Monocytes % (Manual) 3 % (3-13) 10/20/20 05:12 Eosinophils % (Manual) 0 % (0-6) 10/20/20 05:12 Basophils % (Manual) 0 % (0-2) 10/20/20 05:12 Metamyelocytes % 1 % (0-1) 10/20/20 05:12 Abs Neuts (Manual) 15.3 10^3/uL (1.7-8.2) H 10/20/20 05:12 Abs Lymphs (Manual) 0.5 10^3/uL (0.5-4.7) 10/20/20 05:12 Abs Monocytes (Manual) 0.5 10^3/uL (0.1-1.4) 10/20/20 05:12 Absolute Eos (Manual) 0.0 10^3/uL (0.0-0.6) 10/20/20 05:12 Abs Basophils (Manual) 0.0 10^3/uL (0.0-0.2) 10/20/20 05:12 Toxic Vacuolation PRESENT 10/19/20 20:58 Platelet Comment ADEQUATE 10/20/20 05:12 RBC Morph Comment NORMO-CYTIC/CHROMIC 10/20/20 05:12 PT 13.2 SEC (11.4-15.4) 10/19/20 20:58 INR 0.98 10/19/20 20:58 VBG pH 7.43 (7.30-7.42) H 10/19/20 20:58 VBG pCO2 36.8 mmHg (35-63) 10/19/20 20:58 VBG HCO3 23.8 mmol/L (20-32) 10/19/20 20:58 VBG Base Excess -0.1 mmol/L 10/19/20 20:58 Sodium 140.0 mmol/L (137-145) 10/22/20 06:50 Potassium 4.3 mmol/L (3.6-5.0) 10/22/20 06:50 Chloride 108 mmol/L (98-107) H 10/22/20 06:50 Carbon Dioxide 29 mmol/L (22-30) 10/22/20 06:50 Anion Gap 3 (5-19) L 10/22/20 06:50 BUN 13 mg/dL (7-20) 10/22/20 06:50 Creatinine 0.49 mg/dL (0.52-1.25) L 10/22/20 09:25 Est GFR ( Amer) > 60 (>60) 10/22/20 09:25 Est GFR (MDRD) Non-Af > 60 (>60) 10/22/20 09:25 Glucose 244 mg/dL (75-110) H 10/22/20 06:50 POC Glucose 198 mg/dL (70-110) H 10/24/20 11:08 Hemoglobin A1c % 9.4 % (4.7-6.0) H 10/20/20 05:12 Lactic Acid 1.7 mmol/L (0.7-2.1) 10/20/20 05:12 Calcium 8.8 mg/dL (8.4-10.2) 10/22/20 06:50 Total Bilirubin 0.5 mg/dL (0.2-1.3) 10/19/20 20:58 Direct Bilirubin 0.3 mg/dL (0.0-0.4) 10/19/20 20:58 Neonat Total Bilirubin Not Reportable 10/19/20 20:58 Neonat Direct Bilirubin Not Reportable 10/19/20 20:58 Neonat Indirect Bili Not Reportable 10/19/20 20:58 AST 21 U/L (14-36) 10/19/20 20:58 ALT 19 U/L (<35) 10/19/20 20:58 Alkaline Phosphatase 112 U/L (38-126) 10/19/20 20:58 Total Protein 7.2 g/dL (6.3-8.2) 10/19/20 20:58 Albumin 4.0 g/dL (3.5-5.0) 10/19/20 20:58 Serum HCG, Qual NEGATIVE (NEGATIVE) 10/19/20 20:58 Urine Color YELLOW 10/20/20 00:59 Urine Appearance SLIGHTLY-CLOUDY 10/20/20 00:59 Urine pH 5.0 (5.0-9.0) 10/20/20 00:59 Ur Specific [place] 1.028 10/20/20 00:59 Urine Protein NEGATIVE mg/dL (NEGATIVE) 10/20/20 00:59 Urine Glucose (UA) >=500 mg/dL (NEGATIVE) H 10/20/20 00:59 Urine Ketones 80 mg/dL (NEGATIVE) H 10/20/20 00:59 Urine Blood NEGATIVE (NEGATIVE) 10/20/20 00:59 Urine Nitrite (Reflex) NEGATIVE (NEGATIVE) 10/20/20 00:59 Urine Bilirubin NEGATIVE (NEGATIVE) 10/20/20 00:59 Urine Urobilinogen NEGATIVE mg/dL (<2.0) 10/20/20 00:59 Leukocyte Esterase Rfl NEGATIVE (NEGATIVE) 10/20/20 00:59 Urine RBC (Auto) 0 /HPF 10/20/20 00:59 Urine Bacteria (Auto) TRACE /HPF 10/20/20 00:59 Urine WBC (Reflex) 2 /HPF 10/20/20 00:59 Squamous Epi Cells Auto 7 /HPF 10/20/20 00:59 Urine Mucus (Auto) RARE /LPF 10/20/20 00:59 Urine Ascorbic Acid NEGATIVE (NEGATIVE) 10/20/20 00:59 Urine HCG, Qual NEGATIVE (NEGATIVE) 10/20/20 12:09 Time Trough Drawn 0925 10/22/20 09:25 Vancomycin Trough < 5.0 ug/mL (5.0-20.0) L 10/22/20 09:25 Influenza A (RT-PCR) NEGATIVE (NEGATIVE) 10/20/20 01:32 Influenza B (RT-PCR) NEGATIVE (NEGATIVE) 10/20/20 01:32 RSV (RT-PCR) NEGATIVE (NEGATIVE) 10/20/20 01:32 SARS-CoV-2 Rap RNA(RT-PCR) NEGATIVE (NEGATIVE) 10/20/20 01:32 Slides for Path Review PATHOLOGIST REVIEWED 10/19/20 20:58 Impressions: Chest X-Ray 10/19/20 22:04 IMPRESSION: No acute cardiopulmonary abnormalities. Plan Plan of Treatment: - continue wound dressing - follow up with surgery - continue abx Stroke Is this a Stroke Patient?: No Acute Heart Failure Is this a Heart Failure Patient?: No
== END 2020-10-24 13:43 | disposition home or self-care (01) | DRG 872 ==
LOC: ER 21:39 → EH 10-20 02:45 → 2N 10-20 05:32
PROVIDERS: ADMIT Student in an Organized Health Care Education/Training Program; ATTEND Internal Medicine
PROC: 0H9U3ZX Drainage of Left Breast, Percutaneous Approach, Diagnostic (ICD-10-PCS; principal; 2020-10-20 15:00)
PROC: 3E02340 Introduction of Influenza Vaccine into Muscle, Percutaneous Approach (ICD-10-PCS; 2020-10-24)
DX: A41.81 Sepsis due to Enterococcus (principal); N61.1 Abscess of the breast and nipple; Z20.822 Contact with and (suspected) exposure to COVID-19; B95.1 Streptococcus, group B, as the cause of diseases classified elsewhere; E78.5 Hyperlipidemia, unspecified; F32.9 Major depressive disorder, single episode, unspecified; K21.9 Gastro-esophageal reflux disease without esophagitis; E11.65 Type 2 diabetes mellitus with hyperglycemia; I10 Essential (primary) hypertension; Z23 Encounter for immunization; Z79.4 Long term (current) use of insulin; Z79.899 Other long term (current) drug therapy
CPT/HCPCS: 36415; 400; 71045; 80048; 80053; 80202; 81001; 81025; 82565; 82803; 82962; 83036; 83605; 84703; 85025; 85610; 87040; 87070; 87075; 87077; 87205; 90471; 90686; 93005; 93010; 96361; 96365; 96368; 96375; 99140; 99285; 0241U; C9803; G0008; J0295; J0696; J1100; J1170; J1815; J1885; J2250; J2270; J2405; J2704; J3010; J3370; J3490; J7030; J7050; J7060; J7120